=== PATIENT | male | born 1950 | race Caucasian/White ===

== ENCOUNTER → 2016-05-30 | Outpatient (CLI) | payer OTHER ==
[2016-05-30 13:32] LABS: BASO % 0.8 %; BASO ABS # 0.06 K/uL (0-0.2); COMPLETE YES; EOS % 2.4 %; HEMATOCRIT 45.6 % (42-52); IG% 0.1 %; LYMPH % 31.1 %; LYMPH ABS # 2.21 K/uL (1.2-3.4); MEAN CORPUSCULAR HEMOGLOBIN 29.7 pg (25-34); MEAN CORPUSCULAR HGB CONC 32.7 g/dl (32-36); MEAN PLATELET VOLUME 10.8 fL (7.4-10.4); NEUT % 58.6 %; PLATELET COUNT 235 K/uL (130-400); RED BLOOD COUNT 5.01 M/uL (4.7-6.1); WHITE BLOOD COUNT 7.11 K/uL (4.8-10.8)
[2016-05-30 13:35] LABS: ALT/SGPT 13 U/L (12-78); AST/SGOT 8 U/L (15-37); BLOOD UREA NITROGEN 19 mg/dl (7-18); BUN/CREATININE RATIO 14.2 (10-20); CARBON DIOXIDE 31 mmol/L (21-32); CHLORIDE 102 mmol/L (98-107); CHOLESTEROL 108 mg/dl (0-200); GLUCOSE 100 mg/dl (70-99); SODIUM 141 mmol/L (136-145)
[2016-05-30 13:37] LABS: ALKALINE PHOSPHATASE 66 U/L (45-117); CHOLESTEROL/HDL RATIO 2.5; HDL CHOLESTEROL 43 mg/dl; LDL CHOLESTEROL CALCULATED 37 mg/dl; TRIGLYCERIDES 140 mg/dl (0-150); VERY LOW DENSITY LIPOPROT CALC 28 mg/dl
[2016-05-30 13:45] LABS: ESTIMATED AVERAGE GLUCOSE 146 mg/dl; HA1C FLAG Normal (Normal)
== END | disposition home or self-care (01) ==
LOC: C.LABMFLN 07:46
PROVIDERS: ATTEND Family Medicine
DX: E78.5 Hyperlipidemia, unspecified (principal); I10 Essential (primary) hypertension; E11.9 Type 2 diabetes mellitus without complications

== ENCOUNTER → 2016-12-06 | Outpatient (CLI) | payer OTHER | END | disposition home or self-care (01) | LOC: C.LABMFLN 09:44 | PROVIDERS: ATTEND Family Medicine | DX: M10.9 Gout, unspecified (principal); M25.432 Effusion, left wrist ==

== ENCOUNTER → 2017-02-27 | Outpatient (CLI) | payer OTHER ==
[2017-02-27 13:05] LABS: ALT/SGPT 16 U/L (12-78); BLOOD UREA NITROGEN 20 mg/dl (7-18); BUN/CREATININE RATIO 13.8 (10-20); CALCIUM 9.2 mg/dl (8.5-10.1); CARBON DIOXIDE 30 mmol/L (21-32); CHLORIDE 103 mmol/L (98-107); CHOLESTEROL 82 mg/dl (0-200); CREATININE 1.44 mg/dl (0.60-1.40); GLUCOSE 96 mg/dl (70-99); POTASSIUM 4.2 mmol/L (3.5-5.1); SODIUM 141 mmol/L (136-145); TRIGLYCERIDES 143 mg/dl (0-150); URIC ACID 8.6 mg/dl (2.6-7.2); VERY LOW DENSITY LIPOPROT CALC 29 mg/dl
[2017-02-27 13:08] LABS: ALKALINE PHOSPHATASE 87 U/L (45-117); AST/SGOT 11 U/L (15-37); CHOLESTEROL/HDL RATIO 2.1; HDL CHOLESTEROL 40 mg/dl; LDL CHOLESTEROL CALCULATED 13 mg/dl
[2017-02-27 13:19] LABS: ESTIMATED AVERAGE GLUCOSE 160 mg/dl; HA1C FLAG Normal (Normal)
[2017-02-27 13:54] LABS: RATIO 4.2 mcg/mg (0-30.0)
== END | disposition home or self-care (01) ==
LOC: C.LABMFLN 09:19
PROVIDERS: ATTEND Physician Assistant
DX: E78.5 Hyperlipidemia, unspecified (principal); I10 Essential (primary) hypertension; M10.9 Gout, unspecified; E11.9 Type 2 diabetes mellitus without complications

== ENCOUNTER → 2017-08-28 | Outpatient (CLI) | payer OTHER ==
[2017-08-28 13:50] LABS: HEMOGLOBIN A1C 7.4 % (4.5-5.6)
[2017-08-28 14:02] LABS: BASO % 0.6 %; BASO ABS # 0.04 K/uL (0-0.2); EOS % 3.6 %; EOS ABS # 0.23 K/uL (0-0.5); HEMATOCRIT 43.9 % (42-52); HEMOGLOBIN 14.5 g/dL (14.0-18.0); IG# 0.01 K/uL (0.00-0.02); LYMPH % 35.7 %; LYMPH ABS # 2.27 K/uL (1.2-3.4); MEAN CELL VOLUME 88.7 fL (80-100); MEAN CORPUSCULAR HEMOGLOBIN 29.3 pg (25-34); MEAN PLATELET VOLUME 10.6 fL (7.4-10.4); MONO % 6.6 %; MONO ABS # 0.42 K/uL (0.11-0.59); NEUT % 53.3 %; NEUT ABS # 3.38 K/uL (1.4-6.5); PLATELET COUNT 230 K/uL (130-400); RED CELL DISTRIBUTION WIDTH CV 15.6 % (11.5-14.5); RED CELL DISTRIBUTION WIDTH SD 49.7 fL (36.4-46.3); WHITE BLOOD COUNT 6.35 K/uL (4.8-10.8)
[2017-08-28 14:58] LABS: ALBUMIN 3.7 gm/dl (3.4-5.0); ALT/SGPT 21 U/L (12-78); AST/SGOT 16 U/L (15-37); BLOOD UREA NITROGEN 20 mg/dl (7-18); CALCIUM 8.8 mg/dl (8.5-10.1); CARBON DIOXIDE 32 mmol/L (21-32); CHOLESTEROL 108 mg/dl (0-200); CREATININE 1.41 mg/dl (0.60-1.40); GLUCOSE 106 mg/dl (70-99); SODIUM 139 mmol/L (136-145); URIC ACID 8.8 mg/dl (2.6-7.2)
[2017-08-28 15:09] LABS: ALKALINE PHOSPHATASE 79 U/L (45-117); LDL CHOLESTEROL CALCULATED 27 mg/dl; TOTAL PROTEIN 7.5 gm/dl (6.4-8.2)
== END | disposition home or self-care (01) ==
LOC: C.LABMFLN 09:00
PROVIDERS: ATTEND Physician Assistant
DX: E78.5 Hyperlipidemia, unspecified (principal); I10 Essential (primary) hypertension; M10.9 Gout, unspecified; E11.9 Type 2 diabetes mellitus without complications

== ENCOUNTER 2019-02-07 09:42 | Inpatient (IN) ==
--- NOTE | 2019-02-04 10:25 | Anesthesiology Consultation ---
Date of Service February 04, 2019 Assessment & Plan Chart Review Chart Review: Acceptable Risk for Surgery and Patient NOT seen in Pre Admission Testing Consults Requested none ASA ASA4 Proposed Anesthesia Anesthesia Type: General Anesthesia Line Insertion: Arterial line History Surgery Operation Date: 02/07/19 10:40 Proposed Procedures p Left Common Femoral Endarterectomy with Patch, Possible Iliac Stenting - Uriah Barrera MD Allergies Allergy/AdvReac Type Severity Reaction Status Date / Time No Known Drug Allergies Allergy Verified 01/14/19 06:58 Medications Home Medications Medication Instructions Recorded Confirmed Last Taken nitroglycerin 0.4 mg sublingual 0.4 mg SL Q5M #14 tab 09/23/18 01/14/19 Unknown tablet acetaminophen [Tylenol Extra 1,000 mg PO Q6H PRN 01/06/19 01/14/19 Unknown Strength] allopurinol 100 mg PO UD PRN 01/06/19 01/14/19 Unknown amlodipine 5 mg PO QAM 01/06/19 01/14/19 01/13/19 03:00 aspirin [Adult Low Dose Aspirin] 81 mg PO QAM 01/06/19 01/14/19 01/14/19 05:00 atenolol-chlorthalidone 1 tab PO QAM 01/06/19 01/14/19 01/14/19 05:00 atorvastatin 80 mg PO QAM 01/06/19 01/14/19 01/13/19 03:00 colchicine 0.6 mg PO UD PRN 01/06/19 01/14/19 Unknown furosemide 20 mg PO QPM 01/06/19 01/14/19 01/13/19 03:00 lisinopril 40 mg PO QAM 01/06/19 01/14/19 01/13/19 03:00 metformin 500 mg PO BID 01/06/19 01/14/19 01/13/19 03:00 nystatin 1 appln TOP TID #60 gm 01/14/19 Unknown Past Medical History Medical History CAD (coronary artery disease) s/p cardiac stents x 3; RCA/LAD/CX (2001, 2002, 2003) Diabetes mellitus, type 2 NIDDM Dyslipidemia Gout HTN (hypertension) Myocardial Infarction Obesity PAD (peripheral artery disease) S/P LE stents; Following with vascular-- CTA noting occlusion of proximal right SFA with patent profunda and distal runoff to the foot. Mild left common iliac artery with severe stenosis at the origin of the elft internal and moderate external iliac artery stenosis. Left SFA occluded with reconstit ution at the level of the popliteal. Exercise / Class Metabolic Activity III < 4 Walking/Shop/Light housework Past Family History Family History Daughter Family history of diabetes mellitus Past Anesthesia History No Hx of Anesthesia Complications and No Family Hx of Anesthesia Complications History of PONV No Hx of PONV and No Hx of Motion Sickness Social History Smoking Status: Never smoker Hx Alcohol Use: No Hx Substance Use: No Testing Electrocardiogram Date: 12/26/18 Findings: + NSR @ (at 87)
--- NOTE | 2019-02-07 07:20 | History & Physical Report ---
Date of Service February 07, 2019 History of Present Illness Primary Care Provider: Cristiane Duarte PA-C Date of Service January 14, 2019 Assessment & Plan (1) Occlusion of common femoral artery: Patient is admitted for a left common femoral artery endarterectomy with possible iliac stenting. I have discussed the risks options and benefits of the procedure with the patient. The patient understands the risks options and benefits and agrees to the procedure. History of Present Illness Chief Complaint: Severe bilateral claudication Primary Care Provider: Cristiane Duarte PA-C Mr. Anthony Arnold is a very pleasant 68-year-old gentleman with a history of significant peripheral arterial disease who previously underwent what sounds like stenting to the bilateral external iliac arteries in 2002, who now presents with severe, lifestyle limiting, short distance claudication affecting the bilateral lower extremities. He indicates that as far back as he can remember, he has had some pain in his calves, however, for the last several years, it has only been with very long distances, and the pain has not been quite as severe. However, over the last few months, he has noted that he can only walk about 50 yards before he has to stop due to pain experienced in the bilateral calves. The pain is cramping in nature. It is worse in the left than on the right. He also describes pain in the bilateral feet. The pain in the feet is present "all the time." He says that he rarely has pain in his thighs. He denies pain in his hips or buttocks. He indicates that when he lays down at night. He does have some pain in his calves and his feet. This is there "all the time." He does not indicate that it improves with positional changes. He denies any history of wounds to the bilateral lower extremities. He does have some neuropathy which he feels is due to the diabetes in the bilateral lower extremities. He denies any weakness. He did have the prior stents placed, which sounds like in the bilateral external iliac arteries back in 2002. Other than this, he indicates that he has not had any other vascular intervention. Allergies Allergy/AdvReac Type Severity Reaction Status Date / Time No Known Drug Allergies Allergy Verified 01/06/19 15:29 Home Medications Home Medications Medication Instructions Recorded Confirmed Type nitroglycerin 0.4 mg sublingual 0.4 mg SL Q5M #14 tab 09/23/18 01/06/19 Rx tablet acetaminophen [Tylenol Extra 1,000 mg PO Q6H PRN 01/06/19 01/06/19 History Strength] allopurinol 100 mg PO UD PRN 01/06/19 01/06/19 History amlodipine 5 mg PO QAM 01/06/19 01/06/19 History aspirin [Adult Low Dose Aspirin] 81 mg PO QAM 01/06/19 01/06/19 History atenolol-chlorthalidone 1 tab PO QAM 01/06/19 01/06/19 History atorvastatin 80 mg PO QAM 01/06/19 01/06/19 History colchicine 0.6 mg PO UD PRN 01/06/19 01/06/19 History furosemide 20 mg PO QPM 01/06/19 01/06/19 History lisinopril 40 mg PO QAM 01/06/19 01/06/19 History metformin 500 mg PO BID 01/06/19 01/06/19 History Past Med/Surg History Medical History Diabetes mellitus, type 2 NIDDM Gout Myocardial Infarction CAD (coronary artery disease) s/p cardiac stents x 3; RCA/LAD/CX (2001, 2002, 2003) Dyslipidemia HTN (hypertension) Obesity PAD (peripheral artery disease) S/P LE stents; Following with vascular-- CTA noting occlusion of proximal right SFA with patent profunda and distal runoff to the foot. Mild left common iliac artery with severe stenosis at the origin of the elft internal and moderate external iliac artery stenosis. Left SFA occluded with reconstitution at the level of the popliteal. Surgical History History of tooth extraction Hx of vascular surgery B/L LE STENTS H/O cardiac catheterization MANY YEARS AGO; LAST STENTS 2003 Family History Daughter Family history of diabetes mellitus Social History Preferred Language: Emirati Communication Ability: Effective Peoplesoft Programmer Required: No Beliefs That Will Affect Care: None Current Living Situation: Family Other Information That Helps Us Care for You: No Feels Safe at Home: Yes Safety Concerns: Feels Safe At This Time Smoking Status: Never smoker Do You Dip or Chew Tobacco: No ; Smoking End Date: QUIT EARLY ; Second Hand Exposure: No ; Hx Alcohol Use: No Hx Substance Use: No Review of Systems All systems reviewed & are unremarkable except as noted in HPI & below Physical Exam Physical Exam: He is a well-appearing, well-nourished, elderly male who is in no acute distress. He is accompanied by his daughter to today's visit. He is breathing comfortably on room air. Lungs are clear His heart has a regular rate and rythm. His abdomen is obese, however, soft, nontender, nondistended. There are no palpable pulsatile abdominal masses. I am able to weakly palpate a femoral pulse on the right. I am unable to palpate a femoral pulse on the left. His bilateral feet are slightly cool to the touch. I am not able to palpate any pedal pulses bilaterally. There are no wounds to the bilateral lower extremities. He does have the aforementioned neuropathy, which affects his bilateral feet and he indicates that this is at baseline. He is able to sense light touch to the bilateral feet. His motor is intact to the bilateral lower extremities Signed By:<Electronically signed by Uriah Barrera MD>01/14/19 0652 Created: 01/14/19 0646 The status of this report is Signed. Draft = Not yet reviewed or approved by Medical Physician. Signed = Reviewed and approved by Medical Physician. Allergies Allergy/AdvReac Type Severity Reaction Status Date / Time No Known Drug Allergies Allergy Verified 02/05/19 16:04 Home Medications Home Medications Medication Instructions Recorded Confirmed Type nitroglycerin 0.4 mg sublingual 0.4 mg SL Q5M #14 tab 09/23/18 02/05/19 Rx tablet acetaminophen [Tylenol Extra 1,000 mg PO Q6H PRN 01/06/19 02/05/19 History Strength] allopurinol 100 mg PO UD PRN 01/06/19 02/05/19 History amlodipine 5 mg PO QAM 01/06/19 02/05/19 History aspirin [Adult Low Dose Aspirin] 81 mg PO QAM 01/06/19 02/05/19 History atenolol-chlorthalidone 1 tab PO QAM 01/06/19 02/05/19 History atorvastatin 80 mg PO QAM 01/06/19 02/05/19 History colchicine 0.6 mg PO UD PRN 01/06/19 02/05/19 History furosemide 20 mg PO QPM 01/06/19 02/05/19 History lisinopril 40 mg PO QAM 01/06/19 02/05/19 History metformin 500 mg PO BID 01/06/19 02/05/19 History nystatin 1 appln TOP TID #60 gm 01/14/19 02/05/19 Rx Past Med/Surg History Medical History CAD (coronary artery disease) s/p cardiac stents x 3; RCA/LAD/CX (2001, 2002, 2003) Diabetes mellitus, type 2 NIDDM Dyslipidemia Gout HTN (hypertension) Myocardial Infarction Obesity PAD (peripheral artery disease) S/P LE stents; Following with vascular-- CTA noting occlusion of proximal right SFA with patent profunda and distal runoff to the foot. Mild left common iliac artery with severe stenosis at the origin of the elft internal and moderate external iliac artery stenosis. Left SFA occluded with reconstitution at the level of the popliteal. Family History Daughter Family history of diabetes mellitus Social History Preferred Language: Emirati Communication Ability: Effective Peoplesoft Programmer Required: No Beliefs That Will Affect Care: None Current Living Situation: Family Other Information That Helps Us Care for You: No Feels Safe at Home: Yes Safety Concerns: Feels Safe At This Time Smoking Status: Former smoker Tobacco Type: cigarettes ; Do You Dip or Chew Tobacco: No ; Smoking End Date: 1999 ; Second Hand Exposure: No ; Tobacco Cessation Education Requested by Patient: No Hx Alcohol Use: No Hx Substance Use: No
[~2019-02-07 09:42] MED LIST: CEFAZOLIN 2000MG 2,000 MG/15 ML SYR IV SCH; SODIUM CHLORIDE 0.9% 1000ML IV SCH
[2019-02-07 10:29] LABS: BUN Creatinine Ratio 10.5 (10-20); Calcium 8.9 mg/dl (8.5-10.1); Creatinine Clr Calc Pharmacy 57.9 ml/min; Est GFR (African American) 57.8; Est GFR (Non-African American) 49.9
--- NOTE | 2019-02-07 10:42 | History & Physical Bridge Note ---
Date of Service February 07, 2019 History & Physical Bridge Note I have examined the patient, reviewed the History & Physical and in the interval since the performance of the History & Physical I have noted the following changes of clinical significance: no changes noted
[2019-02-07] MEDS ORDERED: ONDANSETRON INJ 2 MG/ML 2 ML VIAL ONE ×2 (11:12→16:13)
[2019-02-07] MEDS ORDERED: MIDAZOLAM HCL 1 MG/ML 2ML VIAL ONE (11:12)
[2019-02-07] MEDS ORDERED: LIDOCAINE HCL 2% 2 ML VIAL/AMP(20MG/ML) INFIL ONE (11:12)
[2019-02-07] MEDS ORDERED: NEOSTIGMINE METHYLSULFATE 5 MG/5 ML SYR ONE (11:12)
[2019-02-07] MEDS ORDERED: fentaNYL citrate 100 MCG/2 ML VIAL ONE ×2 (11:12→16:09)
[2019-02-07] MEDS ORDERED: PROPOFOL IV EMULSION 10 MG/ML 20 ML VIAL IV ONE (11:12)
[2019-02-07] MEDS ORDERED: DEXAMETHASONE SOD INJ 4 MG/ML VIAL ONE (11:12)
[2019-02-07] MEDS ORDERED: ROCURONIUM BROMIDE 10 MG/ML 5 ML VIAL ONE (11:12)
[2019-02-07] MEDS ORDERED: GLYCOPYRROLATE 0.2 MG/ML VIAL ONE (11:12)
[2019-02-07] MEDS ORDERED: LIDOCAINE HCL 1% 20 ML VIAL ONE (11:37)
[2019-02-07] MEDS ORDERED: PAPAVERINE HCL INJ 30 MG/ML 2 ML VIAL ONE (11:37)
[2019-02-07] MEDS ORDERED: HEPARIN (PORCINE) 1000 UNIT/ML 10 ML (CATH LAB USE ONLY) ONE ×2 (11:37→13:56)
[2019-02-07] MEDS ORDERED: GELATIN SPONGE SZ 100 ONE (11:38)
[2019-02-07] MEDS ORDERED: IODIXANOL (VISIPAQUE) 270 MG/ML 50ML ONE (11:38)
[2019-02-07] MEDS ORDERED: IODIXANOL (VISIPAQUE) 270 MG/ML 150ML ONE (11:38)
[2019-02-07] MEDS ORDERED: THROMBIN 5000 UNITS KIT ONE (11:38)
[2019-02-07] MEDS ORDERED: BUPIVACAINE/EPINEPHRINE 0.5% MPF 1:200,000 30 ML VIAL ONE (11:38)
--- NOTE | 2019-02-07 11:51 | Procedure Note ---
Procedure Note Date of Service February 07, 2019 Radial arterial line placed in ASU 2 at 1130 by Koby Arellano CRNA in preparation for left femoral endarterectomy with Dr. Barrera. Left wrist prepped with chlorhexidine and draped with sterile towels. Site infiltrated with 1 cc of 1% lidocaine. 20 G angiocath placed under sterile technique utilizing sterile gloves, surgical hats and masks. Catheter threaded using seldinger technique with return of pulsatile, bright red blood. Site covered with occlusive dressing and taped in place. Waveform consistent with correct arterial placement. After placement, fingers of procedural hand had normal perfusion. Patient tolerated procedure well without complications. I was present throughout arterial line placement. Gale Calix MD, PhD Coding
[2019-02-07] MEDS ORDERED: ATROPINE SULFATE 0.1 MG/ML 10ML SYR IV PRN (12:42)
[2019-02-07] MEDS ORDERED: ePHEDrine sulfate 50 MG/ML AMP IV PRN (12:42)
[2019-02-07] MEDS ORDERED: fentaNYL citrate 100 MCG/2 ML VIAL IV PRN (12:42)
[2019-02-07] MEDS ORDERED: HYDROmorphone INJ 1 MG/ML SYRINGE IV PRN (12:42)
[2019-02-07] MEDS ORDERED: ONDANSETRON INJ 2 MG/ML 2 ML VIAL IV PRN ×2 (12:42→17:56)
[2019-02-07] MEDS ORDERED: SODIUM CHLORIDE 0.9% 250 ML IV PRN (13:54)
[2019-02-07] MEDS ORDERED: ALBUMIN HUMAN 5% 12.5 GM/250 ML VIAL IV ONE (13:59)
[2019-02-07] MEDS ORDERED: PHENYLEPHRINE HCL 10 MG/ML VIAL ONE (14:24)
[2019-02-07] MEDS: CEFAZOLIN 250 MG/ML 1 GM VIAL ONE ×2 (15:25→15:43)
--- NOTE | 2019-02-07 16:06 | Fluoroscopy Report ---
FL hip LT 1V CLINICAL HISTORY: LOST SUTURE COMPARISON STUDY: CTA of the abdomen and pelvis December 10, 2018. FLUOROSCOPY TIME: 0 minutes. FLUOROSCOPIC IMAGES: 2 FINDINGS: No unexpected radiopaque foreign bodies are identified. There are multiple surgical clips. A catheter within the right femoral artery is noted. IMPRESSION: No unexpected radiopaque foreign bodies. Electronically signed by: Moisés Willis M.D. 02/07/2019 4:05 PM
--- NOTE | 2019-02-07 16:07 | Post Operative Brief Note ---
Immediate Post Op Note v1 Date of Surgery February 07, 2019 Pre & Post Diagnosis Operation Date: 02/07/19 11:35 Pre-Op Diagnosis: Left Common Femoral Artery Occlusion Post-Op Diagnosis: Left Common Femoral Artery Occlusion I identified the patient and participated in the time-out.: Yes Procedure Operation Date: 02/07/19 11:35 Actual Procedures p Left common iliac artery stent placement, left external iliac stent placement, left external iliac to left profunda femoral artery bovine bypass,(Left) - Uriah Barrera MD Surgeon Uirah Barrera MD Supervisor Edging MD Andrae L.Minarchick,PAC Estimated Blood Loss 2,200 Findings Consistent with Post-Op Diagnosis Drains Solis Catheter (16 hebrew 10 ml balloon; inserted without difficulty; patent, clear urine; clean dry intact) Anesthesia Type General Complications none Disposition Accompanied Patient To Recovery: No Disposition: Recovery Room
[2019-02-07] MEDS ORDERED: KETAMINE HCL INJ 50 MG/ML 10 ML VIAL ONE (16:11)
[2019-02-07 16:55] LABS: iSTAT Creatinine 1.2 mg/dl (0.6-1.3); iSTAT Hemoglobin 12.2 g/dl (14.0-18.0); iSTAT Ionized Calcium 1.15 mmol/l (1.12-1.32); iSTAT Potassium 4.3 mEq/L (3.3-5.0)
--- NOTE | 2019-02-07 17:06 | Anesthesiology Progress Note ---
Date of Service February 07, 2019 Anesthesia Post Procedure Vital Signs Vital Signs: Temp Pulse Pulse Resp BP Pulse Ox 02/07/19 16:55 80 18 111/70 95 02/07/19 16:45 80 25 H 111/78 98 02/07/19 16:36 36 C L 87 18 111/86 98 02/07/19 10:16 36.9 C 88 18 131/91 93 Pain Intensity Left Leg: Pain Intensity: 10 Transfer of Care Handoff Completed per policy Notes Mental Status: alert / awake / arousable Patient Amnestic to Procedure: Yes Nausea / Vomiting: adequately controlled Pain: adequately controlled Airway Patency, RR, SpO2: stable & adequate BP & HR: stable & adequate Hydration State: stable & adequate Anesthetic Complications: no major complications apparent
--- NOTE | 2019-02-07 17:12 | Critical Care Consultation ---
Date of Consultation February 07, 2019 Assessment & Plan (1) Admitted to intensive care unit: Reason critically ill: 68yo male with PMhx significant for peripheral vascular disease with symptomatic worsening claudication, HTN, HLD, MN, CAD s/p 3 stent placements , DMII, gout and obesity who is s/p left iliac artery stent placement. Was transfused 2 bags of pRBCs after losing ~2L of blood during surgery. Neuro -Pt AAOx3. Unsure of President. -continue to monitor and re-orient as necessary -Pain meds per primary team CV -Currently on hypotensive side due to acute blood loss -s/p 2U of transfused pRBCS in surgery -H &H checks per primary team -Transfuse as necessary per instructions by primary team -continue home med administration per primary team for Hx of HTN, HLD, MN, CAD, PVD Resp -currently on 2L of NC; continue to wean as tolerated. -continue to monitor GI -diet per primary team Renal/ -Baseline Cr of 1.4 -will continue to monitor for any acute changes. Endocrine -Pt with DMII -ICU protocol for hyperglycemia HEME -Acute blood loss anemia-currently HgB at 12 -will continue to monitor ID postop abx per primary team PIVs DVT proph: SCDs Dispo: ICU for monitoring (2) Occlusion of common femoral artery: (3) Acute blood loss as cause of postoperative anemia: Supervising Physician Co-Signing Physician Notes Patient seen and examined with resident-physician Dr. Haile and I agree with h er assessment/plan aside for any exceptions/adiditions noted: Patient had 2.2 L of blood loss in OR. Received 2 units intraprocedurally. Doing ok now. BP maintaining. 18 g and [address] Ideally would want another 18 g or 16 g. Check hgb now. Transfuse as needed. Left posterior tibial pulse present faintly with doppler. Pedal pulse extremely faint with doppler. Rest of plan per Dr. Barrera. History of Present Illness Attending Physician: Uriah Barrera MD History of Present Illness Pt is a 68yo male with PMhx significant for peripheral vascular disease with symptomatic worsening claudication, HTN, HLD, MN, CAD s/p 3 stent placements , DMII, gout and obesity who is s/p left iliac artery stent placement. Was transfused 2 bags of pRBCs after losing ~2L of blood during surgery. Is currently in the ICU for monitoring. Pt states he is thirsty but otherwise denies dizziness, DIEGO, blurry vision, runny nose, cough, sore throat, chest pain, palps, SOB, upper abd pain, diarrhea or constipation, numbness or tingling in hands bilaterally. States he has lower abd and left groin pain. Daughter is family present postop. Allergies Allergy/AdvReac Type Severity Reaction Status Date / Time No Known Drug Allergies Allergy Verified 02/07/19 10:00 Home Medications Home Medications Medication Instructions Recorded Confirmed Type nitroglycerin 0.4 mg sublingual 0.4 mg SL Q5M #14 tab 09/23/18 02/07/19 Rx tablet acetaminophen [Tylenol Extra 1,000 mg PO Q6H PRN 01/06/19 02/07/19 History Strength] allopurinol 100 mg PO UD PRN 01/06/19 02/07/19 History amlodipine 5 mg PO QAM 01/06/19 02/07/19 History aspirin [Adult Low Dose Aspirin] 81 mg PO QAM 01/06/19 02/07/19 History atenolol-chlorthalidone 1 tab PO QAM 01/06/19 02/07/19 History atorvastatin 80 mg PO QAM 01/06/19 02/07/19 History colchicine 0.6 mg PO UD PRN 01/06/19 02/07/19 History furosemide 20 mg PO QPM 01/06/19 02/07/19 History lisinopril 40 mg PO QAM 01/06/19 02/07/19 History metformin 500 mg PO BID 01/06/19 02/07/19 History nystatin 1 appln TOP TID #60 gm 01/14/19 02/07/19 Rx Patient History Medical History CAD (coronary artery disease) s/p cardiac stents x 3; RCA/LAD/CX (2001, 2002, 2003) Diabetes mellitus, type 2 NIDDM Dyslipidemia Gout HTN (hypertension) Myocardial Infarction Obesity PAD (peripheral artery disease) S/P LE stents; Following with vascular-- CTA noting occlusion of proximal right SFA with patent profunda and distal runoff to the foot. Mild left common iliac artery with severe stenosis at the origin of the elft internal and moderate external iliac artery stenosis. Left SFA occluded with reconstitution at the level of the popliteal. Family History Daughter Family history of diabetes mellitus Social History Preferred Language: Yoruba Communication Ability: Effective Capsule Machine Operator Required: No Beliefs That Will Affect Care: None Current Living Situation: Family Other Information That Helps Us Care for You: No Feels Safe at Home: Yes Safety Concerns: Feels Safe At This Time Smoking Status: Former smoker Tobacco Type: cigarettes ; Do You Dip or Chew Tobacco: No ; Smoking End Date: 1999 ; Second Hand Exposure: No ; Tobacco Cessation Education Requested by Patient: No Hx Alcohol Use: No Hx Substance Use: No Review of Systems Review of Systems: All systems reviewed & are unremarkable except as noted in HPI & below Physical Exam Physical Exam: General: Alert, orientedx 3. Not oriented to President. No acute distress Skin: No noted rashes or bruises. Left inguinal surgical incision bandaged with no visible bleeding. Psych: Appropriate mood and affect Neuro: No gross deficits. Moves extremities. HEENT: NC/AT, nasal cannula in nares. Chest: Nontender to palpation. CV: RRR, Normal s1, s2. DP pulse not heard on left with doppler. Resp: Breath sounds clear bilaterally on front, no increased effort of breat wily. Abdomen: Soft, mildly tender in upper and lower quadrants, nondistended. No guarding. Extremities: No edema in lower extremities bilaterally. Results & Data Vital Signs (Past 12 Hours) Vital Signs Temp Pulse Pulse Resp BP Pulse Ox 02/07/19 17:05 81 21 109/73 95 02/07/19 16:55 80 18 111/70 95 02/07/19 16:45 80 25 H 111/78 98 02/07/19 16:36 36 C L 87 18 111/86 98 02/07/19 10:16 36.9 C 88 18 131/91 93 Laboratory Results Laboratory Results - last 24 hr 02/07/19 02/07/19 02/07/19 09:56 09:56 10:07 POC Hgb POC Hct POC Sodium Sodium 138 POC Potassium Potassium 4.0 POC Chloride Chloride 103 Carbon Dioxide 28 POC Total CO2 Anion Gap 7.0 POC Anion Gap POC BUN BUN 15 Creatinine 1.44 H POC Creatinine Est Cr Clr Drug Dosing 57.9 Est GFR ( Amer) 57.8 Est GFR (Non-Af Amer) 49.9 BUN/Creatinine Ratio 10.5 Glucose 109 H POC Glucose 96 POC Glucose (other) Calcium 8.9 POC Ioniz Calcium Eri Blood Type O Positive Antibody Screen NEGATIVE Crossmatch See Detail 02/07/19 02/07/19 14:10 16:35 POC Hgb 12.2 L POC Hct 36 L POC Sodium 138 Sodium POC Potassium 4.3 Potassium POC Chloride 104 Chloride Carbon Dioxide POC Total CO2 25 Anion Gap POC Anion Gap 14.0 L POC BUN 13 BUN Creatinine POC Creatinine 1.2 Est Cr Clr Drug Dosing Est GFR ( Amer) Est GFR (Non-Af Amer) BUN/Creatinine Ratio Glucose POC Glucose 145 H POC Glucose (other) 132 H Calcium POC Ioniz Calcium Eri 1.15 Blood Type Antibody Screen Crossmatch Medications Administered Home Medications nitroglycerin 0.4 mg sublingual tablet 0.4 mg SL Q5M #14 tab 09/23/18 [Rx Confirmed 02/07/19] acetaminophen [Tylenol Extra Strength] 1,000 mg PO Q6H PRN 01/06/19 [History Confirmed 02/07/19] allopurinol 100 mg PO UD PRN 01/06/19 [History Confirmed 02/07/19] amlodipine 5 mg PO QAM 01/06/19 [History Confirmed 02/07/19] aspirin [Adult Low Dose Aspirin] 81 mg PO QAM 01/06/19 [History Confirmed 02/07/19] atenolol-chlorthalidone 1 tab PO QAM 01/06/19 [History Confirmed 02/07/19] atorvastatin 80 mg PO QAM 01/06/19 [History Confirmed 02/07/19] colchicine 0.6 mg PO UD PRN 01/06/19 [History Confirmed 02/07/19] furosemide 20 mg PO QPM 01/06/19 [History Confirmed 02/07/19] lisinopril 40 mg PO QAM 01/06/19 [History Confirmed 02/07/19] metformin 500 mg PO BID 01/06/19 [History Confirmed 02/07/19] nystatin 1 appln TOP TID #60 gm 01/14/19 [Rx Confirmed 02/07/19] Active Medications Acetaminophen (Tylenol) 1,000 mg PO Q6H PRN PRN Reason: Pain Stop: 03/09/19 17:55 Allopurinol (Zyloprim) 100 mg PO UD PRN PRN Reason: Pain Stop: 03/09/19 17:55 Amlodipine Besylate (Norvasc) 5 mg PO QAM ZOEY Stop: 03/10/19 08:59 Aspirin (Ecotrin Ectab) 81 mg PO QAM ZOEY Stop: 03/10/19 08:59 Atorvastatin Calcium (Lipitor) 80 mg PO QAM ZOEY Stop: 03/10/19 08:59 Colchicine (Colcrys) 0.6 mg PO UD PRN PRN Reason: Pain Stop: 03/09/19 17:55 Enoxaparin Sodium (Lovenox) 40 mg SQ Q12H ZOEY Stop: 03/10/19 07:59 Furosemide (Lasix) 20 mg PO QPM ZOEY Stop: 03/09/19 20:59 Sodium Chloride (Nss 1000ml) 1,000 mls @ 15 mls/hr IV .Q24H ZOEY Stop: 02/08/19 05:59 Cefazolin Sodium (Ancef 2000mg) 2,000 mg in 15 mls @ 3.75 mls/min IV PREOP ZOEY; Protocol Stop: 02/08/19 05:59 Last Admin: 02/07/19 11:57 Dose: 3.75 mls/min Documented by: Sodium Chloride (Nss 1000ml) 1,000 mls @ 80 mls/hr IV .[id number] ZOEY Stop: 02/07/19 18:29 Last Infusion: 02/07/19 12:00 Dose: Infused Documented by: Sodium Chloride (Nss) 250 mls @ 15 mls/hr IV .[id number] PRN PRN Reason: For Transfusion Stop: 03/09/19 13:53 Sodium Chloride (Nss) 500 mls @ 125 mls/hr IV .Q4H ZOEY Stop: 03/09/19 17:55 Cefazolin Sodium (Ancef 2000mg) 2,000 mg in 15 mls @ 3.75 mls/min IV Q8H ZOEY; Protocol Stop: 02/08/19 01:59 Lisinopril (Zestril) 40 mg PO QAM ZOEY Stop: 03/10/19 08:59 Miscellaneous Information (Consult Glycemic Management Pharmacy) 1 ea N/A NOW STA Stop: 02/07/19 17:57 Morphine Sulfate (Morphine Sulfate) 1 - 4 mg IV Q2H PRN PRN Reason: Severe Pain Stop: 02/21/19 17:55 Nitroglycerin (Nitrostat) 0.4 mg SL Q5M ZOEY Stop: 03/09/19 17:55 Non-Formulary Medication (Atenolol-Chlorthalidone) 1 tab PO QAM ZOEY Stop: 03/10/19 08:59 Ondansetron HCl (Zofran) 4 mg IV Q6H PRN PRN Reason: Nausea And Vomiting Stop: 03/09/19 17:55 Oxycodone/Acetaminophen (Percocet 5mg/325mg) 1 - 2 tab PO Q4H PRN PRN Reason: Moderate Pain Stop: 02/21/19 17:55 PG Care Time/CCT Total # of Minutes Spent Total Time Spent with Patient: Total time spent is greater than 50% in coordination of care (as documented) at patient's floor/unit and/or counseling patient: Resident Activity Tracking Resident Involvement: Resident Care Provided Care Provided: Adult Hospital Medicine
--- NOTE | 2019-02-07 17:21 | Procedure Note ---
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 Holly Burnham MD Small Machine Bindery Operator MD Andrae L.Minarchick,PAC Estimated Blood Loss 2,200 Findings See Below Patient was found to have a severe stenosis in the left external iliac artery as well as a severe stenosis in the left common iliac artery. Patient had a patent distal aorta. Patient had a patent right common iliac and right external iliac arteries as well as a patent right hypogastric. Upon dissection of the left groin the patient was found to have a bifurcated Dacron graft from the distal external iliac artery to the superficial femoral artery and the deep femoral artery. The end of the case the patient had bilateral AT and PT signals. Specimens None Drains None Anesthesia Type General Complications none Disposition Accompanied Patient To Recovery: No Disposition: Recovery Room Indications 68-year-old male with severe lifestyle limiting claudication. Description of Procedure The patient was taken to the angio suite correctly identified and placed supine on the angiography table. Patient underwent a general anesthetic. Patient had a Solis catheter inserted. Distal signals were marked on bilateral lower extremities. Both groins were prepped and draped in this sterile standard fashion. Attention was then turned to the left groin where using a 10 blade a vertical incision was made two thirds of the distance between the ASIS and the pubic symphysis. Using combination of electrocautery and sharp dissection the incision was carried down to the level of the pre-existing bifurcated graft. Of note this was a severely scarred surgical field. Dissection of the left external iliac artery was completed and carried down to the proximal anastomosis of the bifurcated graft. Attention was then turned to the bifurcated graft and dissection of both limbs of the bifurcated graft was carried down to the distal anastomosis. During the dissection the common femoral vein had an area of injury that was repaired using a 4-0 Prolene suture. Attention was then turned to the right groin and using ultrasound guidance the right common femoral artery was localized. The right common femoral artery was accessed using a 18 gauge needle ultrasound guidance. A J wire was threaded and the 11 blade was used to make an ache in the skin. Following that a 5 Kittitian sheath was advanced over the J-wire after the axis needle was removed. 035 angled glide wire was then advanced into the abdominal aorta and pigtail catheter advanced into the distal aorta. Limited aortogram was obtained. The angiogram revealed a severely stenotic left common iliac artery as well as a severely stenotic left external iliac and left internal iliac artery. The patient had patent right iliac system. Attention was then turned to the left groin where a 18-gauge needle was used to access the bifurcated graft at the anterior surface. A wire was then advanced and the access needle was then exchanged with an 8 Kittitian sheath. Angled Glidewire was then advanced into the distal aorta. An 11 x 39 mm VBX stent was then advanced into the left common iliac artery and deployed. A follow-up angiogram revealed a patent stent with resolution of the stenosis. Attention was then turned to the left groin bifurcated graft. Using the same access point a #5 Christian balloon was inserted into the external iliac artery and inflated to be the proximal control. The profunda was then dissected free and a profunda clamp was applied around it after a vessel loop encircled it. Using an 11 blade the anterior surface of the bifurcated graft was accessed and a Cunha scissors was used to extend the graftotomy created by the 11 blade. The Dacron graft was then dissected free and excised and explanted. At that point the SFA was examined and had no backbleeding so it was ligated using a 2-0 silk tie. The profunda had great backbleeding and the edges were dissected free and both lumens of the profunda were examined and dissected free of any plaque. An 8 mm bovine carotid artery artery graft was then used to create a bypass from the left external iliac artery to the deep femoral artery. Following the proximal anastomosis creation the inflow was examined and a #4 and #5 Christian balloons were advanced into the external iliac and a thrombectomy was completed. At that time an angiogram of the left external iliac artery was completed and revealed a stenotic left external iliac artery at its proximal end so a 10 x 10 mm Viabohn stent was advanced and deployed just distal to the iliac bifurcation. A completion angiogram revealed a patent left common iliac artery stent as well as a patent left external iliac artery stent and a patent though stenotic left hypogastric. The distal end of the bovine carotid artery graft was then anastomosed to the deep femoral artery. Doppler was then employed to evaluate flow as revealed excellent triphasic flow through the profunda branches just distal to the bypass. The foot was then evaluated and it appeared to be pink in color and warm and had a AT and a PT signal present. The wound was then irrigated with antibiotic irrigation and meticulous hemostasis was achieved using electrocautery and clips. At that time 1 of the needles was misplaced and an x- ray of the surgical field was obtained and did not show any sign of the needle. Attention was then turned to the right groin. The 5 Kittitian sheath was then flushed and a wire was introduced into the 5 Kittitian sheath the 5 Kittitian sheath was then exchanged over the wire with the 6 Kittitian Star closure device dilator and sheath. The Star close device was then deployed. Unfortunately, the device closure deployment failed to seal the artery and the device was removed and pressure was held for 15min. She was then turned back to the left groin where the wound was examined once m ore and meticulous hemostasis was achieved at that point the groin wound was closed in a multilayered closure fashion using 2-0 Vicryl sutures to approximate the deep tissues followed by 3-0 Vicryl suture to approximate the wound and dave were used to approximate the skin edges. Sterile dressings were applied to both groins. Patient tolerated the procedure well and at end of the case had no sign of any hematoma in both groins. The patient was taken back to the recovery area in a flat position. At the end of the case after further research the missing needle was located and the case count was completed and accurate. Dr. Barrera was present for the entirety of the procedure. I attest to the content of the Intraoperative Record and any orders documented therein. Any exceptions are noted below.
[2019-02-07] MEDS ORDERED: ALLOPURINOL 100 MG TAB PO PRN (17:56)
[2019-02-07] MEDS ORDERED: ACETAMINOPHEN 500 MG TAB PO PRN (17:56)
[2019-02-07] MEDS ORDERED: COLCHICINE 0.6 MG TAB PO PRN (17:56)
[2019-02-07] MEDS ORDERED: MoRPHine SULFATE 4 MG/ML 1 ML CARP\\VIAL IV PRN (17:56)
[2019-02-07] MEDS ORDERED: PHARMACY GLYCEMIC MGMT CONSULT PRN (18:25)
[2019-02-07] MEDS ORDERED: GLUCOSE 10 TABS/TUBE PO PRN (18:30)
[2019-02-07] MEDS ORDERED: GLUCAGON FOR INJ 1 MG VIAL IM PRN (18:30)
[2019-02-07] MEDS ORDERED: GLUCOSE 40% GEL 15 GM TUBE PO PRN (18:30)
[2019-02-07] MEDS ORDERED: CARBOHYDRATES FOR HYPOGLYCEMIA PO PRN (18:30)
[2019-02-07] MEDS ORDERED: DEXTROSE 50% 50 ML SYRINGE IV PRN (18:30)
[2019-02-07] MEDS: SODIUM CHLORIDE 0.9% 1000ML 1,000 ML IV SCH (18:31)
[2019-02-07 18:39] LABS: Basophils # (auto) 0.03 K/uL (0-0.2); Basophils % (auto) 0.3 %; Eosinophils # (auto) 0.01 K/uL (0-0.5); Eosinophils % (auto) 0.1 %; Hematocrit (blood only) 32.4 % (42-52); Hemoglobin 10.6 g/dL (14.0-18.0); Immature Granulocytes # (auto) 0.02 K/uL (0.00-0.02); Immature Granulocytes % (auto) 0.2 %; Lymphocytes # (auto) 0.94 K/uL (1.2-3.4); Lymphocytes % (auto) 9.7 %; Mean Corpuscular Hemoglobin 29.4 pg (25-34); Mean Corpuscular Volume 89.8 fL (80-100); Mean Platelet Volume 10.3 fL (7.4-10.4); Monocytes # (auto) 0.43 K/uL (0.11-0.59); Monocytes % (auto) 4.5 %; Neutrophils # (auto) 8.22 K/uL (1.4-6.5); Neutrophils % (auto) 85.2 %; Platelet Count 201 K/uL (130-400); RDW Coefficient of Variation 14.7 % (11.5-14.5); RDW Standard Deviation 48.7 fL (36.4-46.3); Red Blood Count 3.61 M/uL (4.7-6.1); White Blood Count 9.65 K/uL (4.8-10.8)
[2019-02-07 18:43] LABS: Mean Corpuscular Hgb Conc 32.7 g/dL (32-36)
[2019-02-07] MEDS ORDERED: NovoLIN-N (NPH) PER UNIT CHARGE SQ ONE (18:45)
[2019-02-07] MEDS ORDERED: NITROGLYCERIN SL 0.4 MG/TAB TAB SL PRN (19:05)
[2019-02-07] MEDS: NITROGLYCERIN SL 0.4 MG/TAB TAB SL SCH ×6 (19:07→19:58)
[2019-02-07 19:39] LABS: BUN Creatinine Ratio 11.8 (10-20); Calcium 7.4 mg/dl (8.5-10.1); Est GFR (African American) 76.7; Est GFR (Non-African American) 66.2; Potassium 4.9 mmol/L (3.5-5.1)
[2019-02-07] MEDS: INSULIN ASPART 100 UNITS/ML 3 ML PEN SC SCH ×2 (19:39→21:18)
[2019-02-07] MEDS: FUROSEMIDE 20 MG TAB PO SCH (21:17)
[2019-02-07] MEDS: CEFAZOLIN 2000MG 2,000 MG/15 ML SYR IV SCH (21:55)
[2019-02-07] MEDS ORDERED: INFLUENZA VACCINE HIGH DOSE 65+ 0.5 ML SYR IM ONE (22:15)
[2019-02-07] MEDS ORDERED: PNEUMOCOCCAL POLYSACCHARIDES 25 MCG/0.5 ML VIAL/SYR IM ONE (22:15)
[2019-02-07] MEDS ORDERED: INFLUENZA ADMINISTRATION CHARGE ONE (22:15)
[2019-02-07] MEDS ORDERED: PNEUMOCOCCAL ADMINISTRATION CHARGE ONE (22:15)
[2019-02-07 23:24] LABS: Hematocrit (blood only) 30.6 % (42-52); Hemoglobin 10.3 g/dL (14.0-18.0)
[2019-02-08] MEDS: SODIUM CHLORIDE 0.9% 1000ML 1,000 ML IV SCH ×2 (02:35→10:10)
[2019-02-08 04:41] LABS: Basophils # (auto) 0.02 K/uL (0-0.2); Basophils % (auto) 0.2 %; Eosinophils # (auto) 0.01 K/uL (0-0.5); Eosinophils % (auto) 0.1 %; Hematocrit (blood only) 29.7 % (42-52); Hemoglobin 9.9 g/dL (14.0-18.0); Immature Granulocytes # (auto) 0.02 K/uL (0.00-0.02); Immature Granulocytes % (auto) 0.2 %; Lymphocytes # (auto) 1.17 K/uL (1.2-3.4); Lymphocytes % (auto) 14.2 %; Mean Corpuscular Hemoglobin 29.8 pg (25-34); Mean Corpuscular Hgb Conc 33.3 g/dL (32-36); Mean Corpuscular Volume 89.5 fL (80-100); Mean Platelet Volume 9.8 fL (7.4-10.4); Monocytes # (auto) 0.63 K/uL (0.11-0.59); Monocytes % (auto) 7.7 %; Neutrophils # (auto) 6.38 K/uL (1.4-6.5); Neutrophils % (auto) 77.6 %; Platelet Count 210 K/uL (130-400); RDW Standard Deviation 49.2 fL (36.4-46.3); Red Blood Count 3.32 M/uL (4.7-6.1); White Blood Count 8.23 K/uL (4.8-10.8)
[2019-02-08 05:00] LABS: BUN Creatinine Ratio 10.7 (10-20); Calcium 7.1 mg/dl (8.5-10.1); Creatinine Clr Calc Pharmacy 72.7 ml/min; Est GFR (African American) 77.5; Est GFR (Non-African American) 66.9; Potassium 4.3 mmol/L (3.5-5.1)
[2019-02-08] MEDS: CEFAZOLIN 2000MG 2,000 MG/15 ML SYR IV SCH (06:37)
--- NOTE | 2019-02-08 08:24 | Critical Care Progress Note ---
Date of Service February 08, 2019 Assessment & Plan (1) Admitted to intensive care unit: Reason critically ill: 68yo male with PMhx significant for peripheral vascular disease with symptomatic worsening claudication, HTN, HLD, GA, CAD s/p 3 stent placements , DMII, gout and obesity who is s/p left iliac artery stent placement. Was transfused 2 bags of pRBCs after losing ~2L of blood during surgery. Stable for downgrade. Neuro -Pt AAOx3. -continue to monitor and re-orient as necessary -Pain meds per primary team CV -Currently on hypotensive side due to acute blood loss -s/p 2U of transfused pRBCS in surgery 02/07 -H &H checks per primary team -Transfuse as necessary per instructions by primary team -continue home med administration per primary team for Hx of HTN, HLD, GA, CAD, PVD Resp -No oxygen requirement today. -continue to monitor GI -diet per primary team Renal/ -Baseline Cr of 1.4 -However, Cr is much improved today. -Continue to monitor for any acute changes. Endocrine -Pt with DMII -ICU protocol for hyperglycemia HEME -Acute blood loss anemia-currently HgB at 9.9 -continue to monitor ID postop abx per primary team PIVs- 18 and 20 gauge DVT proph: SCDs Dispo: Stable for downgrade (2) Occlusion of common femoral artery: (3) Acute blood loss as cause of postoperative anemia: Supervising Physician Co-Signing Physician Notes Dr. Haile was the resident-physician during care of patient. I separately evaluated patient for song portions of the history and the exam. I was present during the critical portion of medical decision making, and I discussed the case with the resident. I generally agree with the findings and plan except for any additions/exceptions noted. Patient is sitting up and eating breakfast today. No significant bleeding at the site. Pulses present on the left foot utilizing Doppler. Dr. Barrera at bedside and I discussed the case with him. Hemoglobin did trend down to 9.9 from a baseline of 14. Creatinine actually improved a bit. He is good to elisabet zurita out of the ICU. Subjective Mr. Arnold says that he only has some lower abd/groin pain this AM. Was up, sitting at the side of the bed. Denies dizziness, headache, blurry vision, sore throat, cough, runny nose, chest pain, SOB, palpitations, diarrhea and constipation, numbness or tingling in hands or feet or swelling. Review of Systems Review of Systems: All systems reviewed & are unremarkable except as noted in HPI & below Physical Exam Physical Exam: General: Alert, oriented. No acute distress, sitting at bedside in chair. Skin: No noted rashes or bruises. Left inguinal surgical incision bandaged with no visible bleeding. Psych: Appropriate mood and affect Neuro: No gross deficits. Moves extremities. HEENT: NC/AT Chest: Nontender to palpation. CV: RRR, Normal s1, s2. Left posterior tib and DP pulses audible with doppler, though faint. Resp: Breath sounds clear bilaterally, no increased effort of breathing. Abdomen: Soft, mildly tender in upper and lower quadrants, nondistended. No guarding. Extremities: No edema in lower extremities bilaterally. MSK: able to move extremities Results & Data Vital Signs (Past 12 Hours) Vital Signs Temp Pulse Resp BP Pulse Ox 02/08/19 02:00 87 18 114/75 96 02/08/19 01:00 94 H 21 115/76 95 02/08/19 00:00 36.5 C 91 H 16 105/66 97 02/07/19 23:00 93 H 18 103/73 95 02/07/19 22:00 92 H 18 105/74 100 02/07/19 21:00 97 H 17 106/68 94 Laboratory Results Laboratory Results - last 24 hr 02/07/19 02/07/19 02/07/19 09:56 09:56 10:07 WBC RBC Hgb POC Hgb Hct POC Hct MCV MCH MCHC RDW Std Deviation RDW Coeff of Armida Plt Count MPV Immature Gran % (Auto) Neut % (Auto) Lymph % (Auto) Burt % (Auto) Eos % (Auto) Baso % (Auto) Immature Gran # (Auto) Neut # (Auto) Lymph # (Auto) Burt # (Auto) Eos # (Auto) Baso # (Auto) POC Sodium Sodium 138 POC Potassium Potassium 4.0 POC Chloride Chloride 103 Carbon Dioxide 28 POC Total CO2 Anion Gap 7.0 POC Anion Gap POC BUN BUN 15 Creatinine 1.44 H POC Creatinine Est Cr Clr Drug Dosing 57.9 Est GFR ( Amer) 57.8 Est GFR (Non-Af Amer) 49.9 BUN/Creatinine Ratio 10.5 Glucose 109 H POC Glucose 96 POC Glucose (other) Calcium 8.9 POC Ioniz Calcium Eri Nasal Screen MRSA (PCR) Hepatitis C Ab Screen Blood Type O Positive Antibody Screen NEGATIVE Crossmatch See Detail 02/07/19 02/07/19 02/07/19 14:10 16:35 18:15 WBC RBC Hgb POC Hgb 12.2 L Hct POC Hct 36 L MCV MCH MCHC RDW Std Deviation RDW Coeff of Armida Plt Count MPV Immature Gran % (Auto) Neut % (Auto) Lymph % (Auto) Burt % (Auto) Eos % (Auto) Baso % (Auto) Immature Gran # (Auto) Neut # (Auto) Lymph # (Auto) Burt # (Auto) Eos # (Auto) Baso # (Auto) POC Sodium 138 Sodium POC Potassium 4.3 Potassium POC Chloride 104 Chloride Carbon Dioxide POC Total CO2 25 Anion Gap POC Anion Gap 14.0 L POC BUN 13 BUN Creatinine POC Creatinine 1.2 Est Cr Clr Drug Dosing Est GFR ( Amer) Est GFR (Non-Af Amer) BUN/Creatinine Ratio Glucose POC Glucose 145 H POC Glucose (other) 132 H Calcium POC Ioniz Calcium Eri 1.15 Nasal Screen MRSA (PCR) Negative Hepatitis C Ab Screen Blood Type Antibody Screen Crossmatch 02/07/19 02/07/19 02/07/19 18:22 18:25 18:25 WBC 9.65 RBC 3.61 L Hgb 10.6 L POC Hgb Hct 32.4 L POC Hct MCV 89.8 MCH 29.4 MCHC 32.7 RDW Std Deviation 48.7 H RDW Coeff of Armida 14.7 H Plt Count 201 MPV 10.3 Immature Gran % (Auto) 0.2 Neut % (Auto) 85.2 Lymph % (Auto) 9.7 Burt % (Auto) 4.5 Eos % (Auto) 0.1 Baso % (Auto) 0.3 Immature Gran # (Auto) 0.02 Neut # (Auto) 8.22 H Lymph # (Auto) 0.94 L Burt # (Auto) 0.43 Eos # (Auto) 0.01 Baso # (Auto) 0.03 POC Sodium Sodium 139 POC Potassium Potassium 4.9 D POC Chloride Chloride 110 H Carbon Dioxide 26 POC Total CO2 Anion Gap 3.0 POC Anion Gap POC BUN BUN 13 Creatinine 1.14 D POC Creatinine Est Cr Clr Drug Dosing 72.0 Est GFR ( Amer) 76.7 Est GFR (Non-Af Amer) 66.2 BUN/Creatinine Ratio 11.8 Glucose 174 H POC Glucose 151 H POC Glucose (other) Calcium 7.4 L D POC Ioniz Calcium Eri Nasal Screen MRSA (PCR) Hepatitis C Ab Screen Blood Type Antibody Screen Crossmatch 02/07/19 02/07/19 02/08/19 21:15 23:15 04:14 WBC RBC Hgb 10.3 L POC Hgb Hct 30.6 L POC Hct MCV MCH MCHC RDW Std Deviation RDW Coeff of Armida Plt Count MPV Immature Gran % (Auto) Neut % (Auto) Lymph % (Auto) Burt % (Auto) Eos % (Auto) Baso % (Auto) Immature Gran # (Auto) Neut # (Auto) Lymph # (Auto) Burt # (Auto) Eos # (Auto) Baso # (Auto) POC Sodium Sodium POC Potassium Potassium POC Chloride Chloride Carbon Dioxide POC Total CO2 Anion Gap POC Anion Gap POC BUN BUN Creatinine POC Creatinine Est Cr Clr Drug Dosing Est GFR ( Amer) Est GFR (Non-Af Amer) BUN/Creatinine Ratio Glucose POC Glucose 167 H POC Glucose (other) Calcium POC Ioniz Calcium Eri Nasal Screen MRSA (PCR) Hepatitis C Ab Screen Neg Blood Type Antibody Screen Crossmatch 02/08/19 02/08/19 02/08/19 04:14 04:14 07:29 WBC 8.23 RBC 3.32 L Hgb 9.9 L POC Hgb Hct 29.7 L POC Hct MCV 89.5 MCH 29.8 MCHC 33.3 RDW Std Deviation 49.2 H RDW Coeff of Armida 15.0 H Plt Count 210 MPV 9.8 Immature Gran % (Auto) 0.2 Neut % (Auto) 77.6 Lymph % (Auto) 14.2 Burt % (Auto) 7.7 Eos % (Auto) 0.1 Baso % (Auto) 0.2 Immature Gran # (Auto) 0.02 Neut # (Auto) 6.38 Lymph # (Auto) 1.17 L Burt # (Auto) 0.63 H Eos # (Auto) 0.01 Baso # (Auto) 0.02 POC Sodium Sodium 137 POC Potassium Potassium 4.3 POC Chloride Chloride 106 Carbon Dioxide 26 POC Total CO2 Anion Gap 5.0 POC Anion Gap POC BUN BUN 12 Creatinine 1.13 POC Creatinine Est Cr Clr Drug Dosing 72.7 Est GFR ( Amer) 77.5 Est GFR (Non-Af Amer) 66.9 BUN/Creatinine Ratio 10.7 Glucose 129 H POC Glucose 135 H POC Glucose (other) Calcium 7.1 L POC Ioniz Calcium Eri Nasal Screen MRSA (PCR) Hepatitis C Ab Screen Blood Type Antibody Screen Crossmatch Medications Administered Home Medications nitroglycerin 0.4 mg sublingual tablet 0.4 mg SL Q5M #14 tab 09/23/18 [Rx Confirmed 02/07/19] acetaminophen [Tylenol Extra Strength] 1,000 mg PO Q6H PRN 01/06/19 [History Confirmed 02/07/19] allopurinol 100 mg PO UD PRN 01/06/19 [History Confirmed 02/07/19] amlodipine 5 mg PO QAM 01/06/19 [History Confirmed 02/07/19] aspirin [Adult Low Dose Aspirin] 81 mg PO QAM 01/06/19 [History Confirmed 02/07/19] atenolol-chlorthalidone 1 tab PO QAM 01/06/19 [History Confirmed 02/07/19] atorvastatin 80 mg PO QAM 01/06/19 [History Confirmed 02/07/19] colchicine 0.6 mg PO UD PRN 01/06/19 [History Confirmed 02/07/19] furosemide 20 mg PO QPM 01/06/19 [History Confirmed 02/07/19] lisinopril 40 mg PO QAM 01/06/19 [History Confirmed 02/07/19] metformin 500 mg PO BID 01/06/19 [History Confirmed 02/07/19] nystatin 1 appln TOP TID #60 gm 01/14/19 [Rx Confirmed 02/07/19] Active Medications Acetaminophen (Tylenol) 1,000 mg PO Q6H PRN PRN Reason: Pain Stop: 03/09/19 17:55 Allopurinol (Zyloprim) 100 mg PO UD PRN PRN Reason: Pain Stop: 03/09/19 17:55 Amlodipine Besylate (Norvasc) 5 mg PO QAM ZOEY Stop: 03/10/19 08:59 Last Admin: 02/08/19 09:16 Dose: Not Given Documented by: Aspirin (Ecotrin Ectab) 81 mg PO QAM ZOEY Stop: 03/10/19 08:59 Last Admin: 02/08/19 09:11 Dose: 81 mg Documented by: Atenolol (Tenormin) 50 mg PO DAILY ZOEY Stop: 03/10/19 08:59 Last Admin: 02/08/19 09:15 Dose: 50 mg Documented by: Atorvastatin Calcium (Lipitor) 80 mg PO QAM ZOEY Stop: 03/10/19 08:59 Last Admin: 02/08/19 09:12 Dose: 80 mg Documented by: Chlorthalidone (Hygroton) 25 mg PO DAILY ZOEY Stop: 03/10/19 08:59 Last Admin: 02/08/19 09:16 Dose: Not Given Documented by: Colchicine (Colcrys) 0.6 mg PO UD PRN PRN Reason: Pain Stop: 03/09/19 17:55 Dextrose (Dextrose 50%) 25 - 50 ml IV UD PRN; Protocol PRN Reason: Hypoglycemia Protocol Stop: 03/09/19 18:29 Enoxaparin Sodium (Lovenox) 40 mg SQ Q12H ZOEY Stop: 03/10/19 07:59 Last Admin: 02/08/19 09:11 Dose: 40 mg Documented by: Furosemide (Lasix) 20 mg PO QPM ZOEY Stop: 03/09/19 20:59 Last Admin: 02/07/19 21:17 Dose: 20 mg Documented by: Glucagon (Glucagen) 1 mg IM UD PRN; Protocol PRN Reason: Hypoglycemia Protocol Stop: 03/09/19 18:29 Glucose (Glucose 40%) 15 - 30 gm PO UD PRN; Protocol PRN Reason: Hypoglycemia Protocol Stop: 03/09/19 18:29 Glucose (Dex4 Glucose) 4 - 8 tabs PO UD PRN; Protocol PRN Reason: Hypoglycemia Protocol Stop: 03/09/19 18:29 Sodium Chloride (Nss) 250 mls @ 15 mls/hr IV .[id number] PRN PRN Reason: For Transfusion Stop: 03/09/19 13:53 Sodium Chloride (Nss 1000ml) 1,000 mls @ 125 mls/hr IV .Q8H ZOEY Stop: 03/09/19 17:55 Last Infusion: 02/08/19 07:20 Dose: Infused Documented by: Insulin Aspart (Novolog Flexpen) 0 units SC ACHS ZOEY Stop: 03/09/19 18:29 Last Admin: 02/08/19 09:10 Dose: 2 units Documented by: Lisinopril (Zestril) 40 mg PO QAM ZOEY Stop: 03/10/19 08:59 Last Admin: 02/08/19 09:16 Dose: Not Given Documented by: Miscellaneous (Carbohydrates For Hypoglycemia) 15 - 30 gm PO UD PRN PRN Reason: Hypoglycemia Treatment Stop: 03/09/19 18:29 Miscellaneous Information (Consult Glycemic Management Pharmacy) 1 ea N/A UD PRN PRN Reason: Consult Stop: 03/09/19 18:24 Morphine Sulfate (Morphine Sulfate) 1 - 4 mg IV Q2H PRN PRN Reason: Severe Pain Stop: 02/21/19 17:55 Last Admin: 02/08/19 06:37 Dose: 2 mg Documented by: Nitroglycerin (Nitrostat) 0.4 mg SL Q5M PRN PRN Reason: CP Stop: 03/09/19 19:04 Ondansetron HCl (Zofran) 4 mg IV Q6H PRN PRN Reason: Nausea And Vomiting Stop: 03/09/19 17:55 Oxycodone/Acetaminophen (Percocet 5mg/325mg) 1 - 2 tab PO Q4H PRN PRN Reason: Moderate Pain Stop: 02/21/19 17:55 PG Care Time/CCT Total # of Minutes Spent Total Time Spent with Patient: Total time spent is greater than 50% in coordination of care (as documented) at patient's floor/unit and/or counseling patient: Resident Activity Tracking Resident Involvement: Resident Care Provided Care Provided: Adult Hospital Medicine
[2019-02-08] MEDS ORDERED: NON-FORMULARY MEDICATION (Atenolol-Chlorthalidone 1 TAB) PO SCH (09:00)
[2019-02-08] MEDS: INSULIN ASPART 100 UNITS/ML 3 ML PEN SC SCH ×4 (09:10→21:28)
[2019-02-08] MEDS: ENOXAPARIN INJ 40 MG/0.4 ML SYR SQ SCH ×2 (09:11→21:00)
[2019-02-08] MEDS: ASPIRIN 81 MG ECTAB PO SCH (09:11)
[2019-02-08] MEDS: ATORVASTATIN 40 MG TAB PO SCH (09:12)
[2019-02-08] MEDS: ATENOLOL 50 MG TABLET PO SCH (09:15)
[2019-02-08] MEDS: AMLODIPINE BESYLATE 5 MG TAB PO SCH (09:16)
[2019-02-08] MEDS: CHLORTHALIDONE 25 MG TAB PO SCH (09:16)
[2019-02-08] MEDS: LISINOPRIL 40 MG TAB PO SCH (09:16)
--- NOTE | 2019-02-08 09:34 | Surgery Progress Note ---
Date of Service February 08, 2019 Assessment & Plan (1) Occlusion of common femoral artery: Patient doing well. Will increase activity and transfer to floor. Subjective Patient complains of groin discomfort. Says he can feel his feet now. No complaints of foot pain Physical Exam Constitutional: WD/WN, vitals as above Respiratory: no respiratory distress Gastrointestinal (Abdomen): Percussion/Palpation: abdomen soft Skin: + wound (Dressing dry and clean. No significant hematoma appreciated) Psychiatric: Orientation: alert and oriented x 3 Results & Data Vital Signs (Past 12 Hours) Vital Signs Temp Pulse Resp BP Pulse Ox 02/08/19 02:00 87 18 114/75 96 02/08/19 01:00 94 H 21 115/76 95 02/08/19 00:00 36.5 C 91 H 16 105/66 97 02/07/19 23:00 93 H 18 103/73 95 02/07/19 22:00 92 H 18 105/74 100
--- NOTE | 2019-02-08 13:40 | Pharmacy Report ---
Glycemic Control Consultation - Date of Service February 08, 2019 - Scope Scope: Glycemic Pharmacist consulted by Dr Barrera on 02/07 for glycemic control and to write orders per [facility] inpatient glycemic control protocol - Objective Weight: 107.2 kg Accuchecks BSG (last 24hrs): 02/07/19 02/07/19 02/07/19 14:10 16:35 18:22 Glucose POC Glucose 145 H 151 H POC Glucose (other) 132 H 02/07/19 02/07/19 02/08/19 18:25 21:15 04:14 Glucose 174 H 129 H POC Glucose 167 H POC Glucose (other) 02/08/19 02/08/19 07:29 12:10 Glucose POC Glucose 135 H 118 H POC Glucose (other) Laboratory Data (last 24hrs): 02/07/19 02/08/19 18:25 04:14 Potassium 4.9 D 4.3 Carbon Dioxide 26 26 Anion Gap 3.0 5.0 Creatinine 1.14 D 1.13 Est Cr Clr Drug Dosing 72.0 72.7 - Recent Pertinent Medications Outpatient Anti-diabetic Regimen: * Metformin 500 mg BID * A1c = 7.3% on 09/06/18 The patient is currently receiving: * Basal insulin: NPH 15 units x 1 yesterday * Correctional Insulin: Novolog Correction per scale ACHS Goal Range: Low 120 mg/dL - High 160 mg/dL Correction Factor: 25 mg/dL/unit * Prandial insulin: Per carb ratio of 1 unit per 8 grams CHO consumed Risk Factors for Insulin Resistance: * Steroids: Decadron 4 mg IV given intraop yesterday * Recent Surgery: POD 1 s/p endarterectomy * Diet: T2DM - Assessment & Plan Assessment & Plan: ASSESSMENT: * 68 y/o male admitted s/p endarterectomy. He has a history of well controlled T2DM, managed with solely metformin as an outpatient. * Pt is maintained on oral antidiabetic agents as an outpatient * Oral agents are not recommended for inpatient use d/t drug interactions, changing PO intake, and difficulty titrating for acute hyper/hypoglycemia. ADA recommends re-initiating outpatient oral agents 1-2 days prior to discharge if/when appropriate if they were held on admission. * Will hold oral agents for admission and utilize SQ basal bolus insulin regimen which is the recommended regimen for inpatient glycemic control. * Will initiate weight based insulin dosing for insulin yoko patient and titrate based on BSG trends. PLAN FOR INPATIENT GLYCEMIC CONTROL: * Holding outpatient oral diabetes medications - metformin will be resumed on 02/09 PM (48 hrs after contrast) * Basal insulin * No further basal insulin since patient will not receive further steroids * Bolus insulin * NovoLog per scale ACHS or Q6hrs while NPO * Goal Range: Low 120 mg/dL - High 160 mg/dL * Correction Factor: 25 mg/dL/unit * Nutritional / Prandial insulin per carb ratio of 1 unit per 8 grams CHO consumed * A1c ordered for 02/09 since last one available is > 90 days ago * Please note that the plan above was derived based on current level of insulin resistance and hospital stress. These recommendations are appropriate for inpatient admission only. Plan of care upon discharge will need to be reassessed to avoid potential outpatient hypo/hyperglycemia. Thank you.
[2019-02-08] MEDS: OXYCODONE/ACETAMINOPHEN 5mg/325mg TAB PO PRN ×2 (14:10→23:46)
[2019-02-08] MEDS: FUROSEMIDE 20 MG TAB PO SCH (21:06)
[2019-02-09 05:16] LABS: Basophils # (auto) 0.04 K/uL (0-0.2); Basophils % (auto) 0.4 %; Eosinophils # (auto) 0.14 K/uL (0-0.5); Eosinophils % (auto) 1.4 %; Hematocrit (blood only) 29.1 % (42-52); Hemoglobin 9.4 g/dL (14.0-18.0); Immature Granulocytes # (auto) 0.02 K/uL (0.00-0.02); Immature Granulocytes % (auto) 0.2 %; Lymphocytes # (auto) 1.94 K/uL (1.2-3.4); Lymphocytes % (auto) 20.1 %; Mean Corpuscular Hemoglobin 29.5 pg (25-34); Mean Corpuscular Hgb Conc 32.3 g/dL (32-36); Mean Corpuscular Volume 91.2 fL (80-100); Mean Platelet Volume 9.8 fL (7.4-10.4); Monocytes # (auto) 1.09 K/uL (0.11-0.59); Monocytes % (auto) 11.3 %; Neutrophils # (auto) 6.43 K/uL (1.4-6.5); Neutrophils % (auto) 66.6 %; Platelet Count 178 K/uL (130-400); RDW Coefficient of Variation 14.7 % (11.5-14.5); RDW Standard Deviation 49.7 fL (36.4-46.3); Red Blood Count 3.19 M/uL (4.7-6.1); White Blood Count 9.66 K/uL (4.8-10.8)
[2019-02-09 05:56] LABS: BUN Creatinine Ratio 11.9 (10-20); Calcium 7.5 mg/dl (8.5-10.1); Creatinine Clr Calc Pharmacy 37.4 ml/min; Est GFR (African American) 34.6; Est GFR (Non-African American) 29.9; Potassium 4.4 mmol/L (3.5-5.1)
[2019-02-09] MEDS: OXYCODONE/ACETAMINOPHEN 5mg/325mg TAB PO PRN ×3 (06:39→23:14)
[2019-02-09] MEDS ORDERED: FUROSEMIDE 20 MG TAB PO STA (07:41)
[2019-02-09] MEDS ORDERED: SODIUM CHLORIDE 0.9% 1,000 ML IV SCH (07:45)
[2019-02-09] MEDS: ENOXAPARIN INJ 40 MG/0.4 ML SYR SQ SCH ×2 (08:13→20:57)
[2019-02-09] MEDS: SODIUM CHLORIDE 0.9% 1,000 ML IV SCH ×3 (09:07→19:08)
[2019-02-09] MEDS: ATORVASTATIN 40 MG TAB PO SCH (09:08)
[2019-02-09] MEDS: ASPIRIN 81 MG ECTAB PO SCH (09:08)
[2019-02-09] MEDS: INSULIN ASPART 100 UNITS/ML 3 ML PEN SC SCH ×4 (09:10→20:49)
[2019-02-09] MEDS: ATENOLOL 50 MG TABLET PO SCH (09:11)
[2019-02-09] MEDS: LISINOPRIL 40 MG TAB PO SCH (09:11)
[2019-02-09] MEDS: CHLORTHALIDONE 25 MG TAB PO SCH (09:11)
[2019-02-09] MEDS: AMLODIPINE BESYLATE 5 MG TAB PO SCH (09:11)
[2019-02-09] MEDS ORDERED: FUROSEMIDE 40 MG/4 ML VIAL IV STA (09:36)
--- NOTE | 2019-02-09 09:42 | Surgery Progress Note ---
Date of Service February 09, 2019 Assessment & Plan (1) Occlusion of common femoral artery: Patient still requiring oxygen today. He does have a few crackles. He was slightly hypotensive during the night. He was bolused with thousand cc of saline. This raises pressure to the mid 90s. We will continue a maintenance IV being that he is not taking p.o. fluids that would help yet. Due to crackles in his lung and the edema in his lower extremities we will give him low-dose Lasix being that he is on chronic diuretic therapy at home. The foot itself is markedly improved. He has good Doppler signals of the posterior tibial and good capillary refill. He claims the foot feels much farzad r. Subjective Patient patient has no complaints. He says his left foot feels much better. He does have some mild left groin pain when he is up out of bed. He denies any shortness of breath. Physical Exam Respiratory: normal respiratory effort; no respiratory distress Auscultation: + crackles Cardiovascular: Rate/Rhythm: regular rate and regular rhythm Vessels: posterior tibial pulses present (Left posterior tibial has an easily dopplerable pulse.) and dorsalis pedis pulses present (There is a palpable dorsalis pedis on the left high on the foot.) Extremities: + edema (He does have mild bilateral lower extremity edema present on exam today.) Skin: + incision (Incision the left groin is dry and clean. No hematomas noted. The right groin puncture sites also dry and clean without any hematoma.) Psychiatric: Orientation: alert and oriented x 3 Results & Data Vital Signs (Past 12 Hours) Vital Signs Temp Pulse Pulse Resp BP BP Pulse Ox 02/09/19 07:34 37.0 C 81 16 91/58 L 93 02/09/19 07:25 82 18 77/48 L 02/08/19 23:13 37.1 C 85 18 98/66 L 92
--- NOTE | 2019-02-09 10:24 | XRay Report ---
XR chest 2V PA/lateral CLINICAL HISTORY: bilateral lung crackles dyspnea COMPARISON STUDY: 01/06/2019 FINDINGS: Chronic focal atelectatic change left base. Lungs otherwise appear clear. Diaphragms are sm ooth. IMPRESSION: Chronic focal atelectasis left base. Otherwise negative study. The above report was generated using voice recognition software. It may contain grammatical, syntax or spelling errors. Electronically signed by: Clemente Feliz M.D. 02/09/2019 10:23 AM
--- NOTE | 2019-02-09 10:36 | Pharmacy Report ---
Pharmacy Glycemic Short Note 2 - Date of Service February 09, 2019 - Glycemic Short BSG Results (Last 24 hours): 02/08/19 02/08/19 02/08/19 12:10 17:06 20:49 Glucose POC Glucose 118 H 119 H 122 H 02/09/19 02/09/19 04:44 07:59 Glucose 111 H POC Glucose 119 H OUTPATIENT ANTIDIABETIC REGIMEN: * Metformin 500 mg BID * A1c = 7.3% on 09/06/18 The patient is currently receiving: * Correctional Insulin: Novolog Correction per scale ACHS Goal Range: Low 120 mg/dL - High 160 mg/dL Correction Factor: 25 mg/dL/unit * Prandial insulin: Per carb ratio of 1 unit per 8 grams CHO consumed Risk Factors for Insulin Resistance: * Recent Surgery: POD 2 s/p endarterectomy * Diet: T2DM - Assessment & Plan ASSESSMENT: 02/09 * Mr. Arnold's BSGs have been stable on current regimen of bolus insulin only * SCr has increased (1.1 -> 2.2) * Will plan to loosen CR slightly and place ordered metformin on hold in the setting of reduced renal function 02/08 * 68 y/o male admitted s/p endarterectomy. He has a history of well controlled T2DM, managed with solely metformin as an outpatient. * Pt is maintained on oral antidiabetic agents as an outpatient * Oral agents are not recommended for inpatient use d/t drug interactions, changing PO intake, and difficulty titrating for acute hyper/hypoglycemia. ADA recommends re-initiating outpatient oral agents 1-2 days prior to discharge if/when appropriate if they were held on admission. * Will hold oral agents for admission and utilize SQ basal bolus insulin regimen which is the recommended regimen for inpatient glycemic control. * Will initiate weight based insulin dosing for insulin yoko patient and titrate based on BSG trends. PLAN FOR INPATIENT GLYCEMIC CONTROL: * Hold metformin in the setting of increased SCr * Bolus insulin - loosen CR slightly * NovoLog per scale ACHS or Q6hrs while NPO * Goal Range: Low 120 mg/dL - High 160 mg/dL * Correction Factor: 25 mg/dL/unit * Nutritional / Prandial insulin per carb ratio of 1 unit per 10 grams CHO consumed * A1c pending
[2019-02-09] MEDS: FUROSEMIDE 20 MG TAB PO SCH (20:56)
[2019-02-09] MEDS ORDERED: METFORMIN HCL 500 MG TAB PO SCH (21:00)
[2019-02-10] MEDS: SODIUM CHLORIDE 0.9% 1,000 ML IV SCH (05:14)
[2019-02-10 06:37] LABS: Estimated Average Glucose 134 mg/dl; Hemoglobin A1C 6.3 % (4.5-5.6)
[2019-02-10] MEDS: OXYCODONE/ACETAMINOPHEN 5mg/325mg TAB PO PRN ×2 (07:37→16:11)
--- NOTE | 2019-02-10 08:06 | Anesthesiology Progress Note ---
Date of Service February 10, 2019 Anesthesia Post Procedure Vital Signs Vital Signs: Temp Pulse Pulse Resp BP BP Pulse Ox 02/10/19 07:10 37.1 C 93 H 16 111/74 93 02/10/19 02:41 37 C 02/09/19 22:55 37.7 C H 91 H 18 96/61 L 93 02/09/19 19:12 89 95/59 L 92 02/09/19 15:22 37.2 C 85 18 90/59 L 94 02/09/19 13:20 85 16 83/50 L 91 02/09/19 10:50 96/50 L 02/09/19 10:20 84 16 80/53 L 93 02/09/19 09:30 86 18 86/54 L Pain Intensity Left Leg: Pain Intensity: 10 Left Groin: Pain Intensity: 8 Notes Mental Status: alert / awake / arousable and participated in evaluation Nausea / Vomiting: adequately controlled Pain: adequately controlled Airway Patency, RR, SpO2: stable & adequate BP & HR: stable & adequate Hydration State: stable & adequate
--- NOTE | 2019-02-10 08:32 | Pharmacy Report ---
Pharmacy Glycemic Short Note 2 - Date of Service February 10, 2019 - Glycemic Short BSG Results (Last 24 hours): 02/09/19 02/09/19 02/09/19 12:10 17:20 20:41 POC Glucose 108 H 132 H 129 H 02/10/19 08:04 POC Glucose 117 H OUTPATIENT ANTIDIABETIC REGIMEN: * Metformin 500 mg BID * A1c = 6.3% (02/09/19) Risk Factors for Insulin Resistance: * Recent Surgery: POD 3 s/p endarterectomy * Diet: T2DM - Assessment & Plan ASSESSMENT: 02/10 * BSGs have been stable on current regimen of bolus insulin only * SCr has increased (1.1 -> 2.2) - no new SCr ordered for today (will reassess tomorrow) * Continue to hold metformin in the setting of reduced renal function * Patient received 6 units of insulin yesterday with BSGs ranging 108-132 mg/dL 02/08 * 68 y/o male admitted s/p endarterectomy. He has a history of well controlled T2DM, managed with solely metformin as an outpatient. * Pt is maintained on oral antidiabetic agents as an outpatient * Oral agents are not recommended for inpatient use d/t drug interactions, changing PO intake, and difficulty titrating for acute hyper/hypoglycemia. ADA recommends re-initiating outpatient oral agents 1-2 days prior to discharge if/when appropriate if they were held on admission. * Will hold oral agents for admission and utilize SQ basal bolus insulin regimen which is the recommended regimen for inpatient glycemic control. * Will initiate weight based insulin dosing for insulin yoko patient and titrate based on BSG trends. PLAN FOR INPATIENT GLYCEMIC CONTROL: * Hold metformin in the setting of increased SCr * Bolus insulin - continue current parameters * NovoLog per scale ACHS or Q6hrs while NPO * Goal Range: Low 120 mg/dL - High 160 mg/dL * Correction Factor: 25 mg/dL/unit * Nutritional / Prandial insulin per carb ratio of 1 unit per 10 grams CHO consumed Discharge Plan: * Pending resolution of BROCK - patient can likely be discharged on current outpatient regimen of metformin 500 mg PO BIDM * A1c of 6.3% demonstrates good glycemic control
[2019-02-10] MEDS: ASPIRIN 81 MG ECTAB PO SCH (09:08)
[2019-02-10] MEDS: ATORVASTATIN 40 MG TAB PO SCH (09:10)
[2019-02-10] MEDS: ENOXAPARIN INJ 40 MG/0.4 ML SYR SQ SCH (09:11)
[2019-02-10] MEDS: LISINOPRIL 40 MG TAB PO SCH (09:12)
[2019-02-10] MEDS: AMLODIPINE BESYLATE 5 MG TAB PO SCH (09:12)
[2019-02-10] MEDS: CHLORTHALIDONE 25 MG TAB PO SCH (09:12)
[2019-02-10] MEDS: ATENOLOL 50 MG TABLET PO SCH (09:12)
[2019-02-10] MEDS: INSULIN ASPART 100 UNITS/ML 3 ML PEN SC SCH ×4 (09:13→21:22)
[2019-02-10 10:53] LABS: Hematocrit (blood only) 26.9 % (42-52); Hemoglobin 8.9 g/dL (14.0-18.0)
[2019-02-10 11:19] LABS: BUN Creatinine Ratio 15.3 (10-20); Calcium 7.6 mg/dl (8.5-10.1); Creatinine Clr Calc Pharmacy 50.4 ml/min; Est GFR (Non-African American) 41.4; Potassium 4.3 mmol/L (3.5-5.1)
--- NOTE | 2019-02-10 11:19 | Surgery Progress Note ---
Date of Service February 10, 2019 Assessment & Plan (1) Occlusion of common femoral artery: Pt still requiring Oxygen today, but has been titrated down from 4LPM to 2LPM and saturations remain acceptable at 93%. Pt does have some fluid balance and has received 3500ml of fluids since yesterday. Hypotension improved, will stop fluids. LLE remains significantly edematous. Will order LLE DVT US to be done today. Pt Cr yesterday was 2.2, new labs ordered for today, not resulted yet. Pt states feeling well. Continue to monitor. Subjective 68 yo m POD #3 after L iliac art stent and femoral to profunda bovine bypass graft, seen in f/u today. Pt admits pain in L groin and leg, worse with ambulation. Also admits severe edema of LLE. Denies any SOB, chest pain, N/V, or rest pain of LLE. Review of Systems Review of Systems: All systems reviewed & are unremarkable except as noted in HPI & below Physical Exam Constitutional: WD/WN, vitals as above + morbidly obese Respiratory: normal respiratory effort Auscultation: + crackles Cardiovascular: Rate/Rhythm: regular rate and regular rhythm Vessels: posterior tibial pulses present (doppler) and dorsalis pedis pulses present (doppler) Extremities: normal capillary refill, + pedal edema and + edema (LLE with +4 tight edema) Gastrointestinal (Abdomen): Inspection/Auscultation: abdomen normal to inspection and normal bowel sounds Percussion/Palpation: abdomen nontender Musculoskeletal: Extremities: strength 5/5 throughout Skin: + incision (L groin incision C/D/I with dave. ) Neurologic: moves all extremities; no focal motor deficits Psychiatric: A+Ox3, euthymic affect Results & Data Vital Signs (Past 12 Hours) Vital Signs Temp Pulse Resp BP BP Pulse Ox 02/10/19 09:15 90/55 L 02/10/19 07:10 37.1 C 93 H 16 111/74 93 02/10/19 02:41 37 C
--- NOTE | 2019-02-10 16:11 | Ultrasound Report ---
US venous doppler LE LT CLINICAL HISTORY: LLE edema, possible DVT COMPARISON STUDY: No previous studies for comparison. FINDINGS: Thrombus formation within the distal left popliteal vein. There is also involvement of the posterior tibial vein and peroneal vein. IMPRESSION: Acute deep venous thrombosis from the left popliteal vein extending to components of the left lower leg. The above report was generated using voice recognition software. It may contain grammatical, syntax or spelling errors. Electronically signed by: Clemente Feliz M.D. 02/10/2019 4:10 PM
[2019-02-10] MEDS ORDERED: RIVAROXABAN 15 MG TAB PO SCH (21:00)
[2019-02-10] MEDS: FUROSEMIDE 20 MG TAB PO SCH (21:22)
[2019-02-10] MEDS: RIVAROXABAN 20 MG TAB PO SCH (21:40)
[2019-02-11 05:47] LABS: Hemoglobin 8.3 g/dL (14.0-18.0)
[2019-02-11] MEDS: OXYCODONE/ACETAMINOPHEN 5mg/325mg TAB PO PRN ×2 (06:04→17:58)
[2019-02-11 06:18] LABS: Calcium 7.6 mg/dl (8.5-10.1); Creatinine Clr Calc Pharmacy 67.2 ml/min; Est GFR (Non-African American) 58.6; Potassium 4.2 mmol/L (3.5-5.1)
[2019-02-11] MEDS: AMLODIPINE BESYLATE 5 MG TAB PO SCH (09:01)
[2019-02-11] MEDS: ATENOLOL 50 MG TABLET PO SCH (09:02)
[2019-02-11] MEDS: CHLORTHALIDONE 25 MG TAB PO SCH (09:02)
[2019-02-11] MEDS: LISINOPRIL 40 MG TAB PO SCH (09:02)
[2019-02-11] MEDS: ASPIRIN 81 MG ECTAB PO SCH (09:02)
[2019-02-11] MEDS: ATORVASTATIN 40 MG TAB PO SCH (09:02)
[2019-02-11] MEDS: INSULIN ASPART 100 UNITS/ML 3 ML PEN SC SCH ×4 (09:05→21:20)
--- NOTE | 2019-02-11 10:57 | Pharmacy Report ---
Pharmacy Glycemic Short Note 2 - Date of Service February 11, 2019 - Glycemic Short BSG Results (Last 24 hours): 02/10/19 02/10/19 02/10/19 10:39 11:57 17:08 Glucose 137 H POC Glucose 104 H 121 H 02/10/19 02/11/19 20:33 05:17 Glucose 106 H POC Glucose 175 H OUTPATIENT ANTIDIABETIC REGIMEN: * Metformin 500 mg BID * A1c = 6.3% (02/09/19) Risk Factors for Insulin Resistance: * Recent Surgery: POD 3 s/p endarterectomy * Diet: T2DM - Assessment & Plan ASSESSMENT: 02/11 * Patient is now POD #4 s/p stent placement of left common iliac artery * BSGs have been stable on current regimen of bolus insulin only * SCr trending down over past couple of days (2.2 -> 1.68 -> 1.28) * Continue to hold metformin in the setting of variable renal function (consi allyson restarting metformin tomorrow, or on discharge if renal function stable) * Patient received 13 units of insulin yesterday with BSGs ranging 104-175 mg/dL 02/08 * 68 y/o male admitted s/p endarterectomy. He has a history of well controlled T2DM, managed with solely metformin as an outpatient. * Pt is maintained on oral antidiabetic agents as an outpatient * Oral agents are not recommended for inpatient use d/t drug interactions, changing PO intake, and difficulty titrating for acute hyper/hypoglycemia. ADA recommends re-initiating outpatient oral agents 1-2 days prior to discharge if/when appropriate if they were held on admission. * Will hold oral agents for admission and utilize SQ basal bolus insulin regimen which is the recommended regimen for inpatient glycemic control. * Will initiate weight based insulin dosing for insulin yoko patient and titrate based on BSG trends. PLAN FOR INPATIENT GLYCEMIC CONTROL: * Continue to hold metformin while inpatient or until renal function is stable * Bolus insulin - continue current parameters * NovoLog per scale ACHS or Q6hrs while NPO * Goal Range: Low 120 mg/dL - High 160 mg/dL * Correction Factor: 25 mg/dL/unit * Nutritional / Prandial insulin per carb ratio of 1 unit per 10 grams CHO consumed Discharge Plan: * Patient can likely be discharged on current outpatient regimen of metformin 500 mg PO BIDM * A1c of 6.3% demonstrates good glycemic control
--- NOTE | 2019-02-11 11:04 | Surgery Progress Note ---
Date of Service February 11, 2019 Assessment & Plan (1) Occlusion of common femoral artery: Pt still requiring Oxygen today at 2LPM. Pt states feeling well, somewhat tired. Hgb 8.3 today. Recheck tomororw. Continue to monitor. (2) DVT of popliteal vein: Started on Eliquis, will need treatment for 3-6 months. Elevate LLE to alleviate edema. Subjective 68 yo m POD #4 after L iliac art stent and femoral to profunda bovine bypass graft, seen in f/u today. Pt admits pain in L groin and leg, worse with movement. Also admits severe edema of LLE. Denies any SOB, chest pain, N/V, or rest pain of LLE. Venous US positive for LLE pop DVT, started on Eliquis last evening. Physical Exam Constitutional: WD/WN, vitals as above + morbidly obese Respiratory: normal respiratory effort Auscultation: + crackles Cardiovascular: Rate/Rhythm: regular rate and regular rhythm Vessels: posterior tibial pulses present (doppler) and dorsalis pedis pulses present (doppler) Extremities: normal capillary refill, + pedal edema and + edema (LLE with +4 tight edema) Gastrointestinal (Abdomen): Inspection/Auscultation: abdomen normal to inspection and normal bowel sounds Percussion/Palpation: abdomen nontender Musculoskeletal: Extremities: strength 5/5 throughout Skin: + incision (L groin incision C/D/I with dave. ) Neurologic: moves all extremities; no focal motor deficits Psychiatric: A+Ox3, euthymic affect Results & Data Vital Signs (Past 12 Hours) Vital Signs Temp Pulse Resp BP BP Pulse Ox 02/11/19 07:20 36.9 C 82 16 111/68 92 02/10/19 23:05 37.2 C 90 20 102/66 93
[2019-02-11] MEDS: RIVAROXABAN 20 MG TAB PO SCH (21:23)
[2019-02-11] MEDS: FUROSEMIDE 20 MG TAB PO SCH ×2 (21:42→22:06)
[2019-02-12 06:54] LABS: Hematocrit (blood only) 24.6 % (42-52)
[2019-02-12 07:12] LABS: BUN Creatinine Ratio 12.8 (10-20); Calcium 8.2 mg/dl (8.5-10.1); Creatinine Clr Calc Pharmacy 60.2 ml/min; Est GFR (African American) 59.3; Est GFR (Non-African American) 51.2; Potassium 4.2 mmol/L (3.5-5.1)
[2019-02-12] MEDS ORDERED: SODIUM CHLORIDE 0.9% 250 ML IV PRN (08:01)
[2019-02-12] MEDS: ATORVASTATIN 40 MG TAB PO SCH (08:43)
[2019-02-12] MEDS: AMLODIPINE BESYLATE 5 MG TAB PO SCH (08:43)
[2019-02-12] MEDS: LISINOPRIL 40 MG TAB PO SCH (08:44)
[2019-02-12] MEDS: CHLORTHALIDONE 25 MG TAB PO SCH (08:44)
[2019-02-12] MEDS: ASPIRIN 81 MG ECTAB PO SCH (08:44)
[2019-02-12] MEDS: ATENOLOL 50 MG TABLET PO SCH (08:44)
[2019-02-12] MEDS: INSULIN ASPART 100 UNITS/ML 3 ML PEN SC SCH ×4 (09:39→21:25)
--- NOTE | 2019-02-12 11:09 | Surgery Progress Note ---
Date of Service February 12, 2019 Assessment & Plan (1) Occlusion of common femoral artery: Pt still requiring Oxygen today at 2LPM. Pt states feeling well, somewhat tired. Hgb 8.0 today, will administer 2 U PRBC d/t anemia and hypotension. Continue to monitor. (2) DVT of popliteal vein: Started on Eliquis, will need treatment for 3-6 months. Elevate LLE to alleviate edema. Subjective 68 yo m POD #5 after L iliac art stent and femoral to profunda bovine bypass graft, seen in f/u today. Pt admits pain in L groin and leg, worse with movement. Also admits severe edema of LLE. Denies any SOB, chest pain, N/V, or rest pain of LLE. Venous US positive for LLE pop DVT, started on Eliquis 2 days ago for DVT. Pt hgb noted to be 8.0 today, with hypotension 89/60. Review of Systems Review of Systems: All systems reviewed & are unremarkable except as noted in HPI & below Physical Exam Constitutional: WD/WN, vitals as above + morbidly obese Respiratory: normal respiratory effort Auscultation: no crackles Cardiovascular: Rate/Rhythm: regular rate and regular rhythm Vessels: posterior tibial pulses present (doppler) and dorsalis pedis pulses present (doppler) Extremities: normal capillary refill, + pedal edema and + edema (LLE with +4 tight edema) Gastrointestinal (Abdomen): Inspection/Auscultation: abdomen normal to inspection and normal bowel sounds Percussion/Palpation: abdomen nontender Musculoskeletal: Extremities: strength 5/5 throughout Skin: + incision (L groin incision C/D/I with dave. ) Neurologic: moves all extremities; no focal motor deficits Psychiatric: A+Ox3, euthymic affect Results & Data Vital Signs (Past 12 Hours) Vital Signs Temp Pulse Pulse Resp BP BP Pulse Ox 02/12/19 10:30 36.6 C 70 16 83/59 L 94 02/12/19 10:15 37.3 C 72 16 86/53 L 95 02/12/19 10:00 37.2 C 61 16 112/71 94 02/12/19 08:42 36.6 C 02/12/19 07:15 37.6 C H 82 16 110/75 93
[2019-02-12] MEDS: OXYCODONE/ACETAMINOPHEN 5mg/325mg TAB PO PRN (16:04)
[2019-02-12] MEDS: RIVAROXABAN 20 MG TAB PO SCH (21:25)
[2019-02-12] MEDS: FUROSEMIDE 20 MG TAB PO SCH (21:25)
[2019-02-13 06:32] LABS: Hematocrit (blood only) 31.3 % (42-52); Hemoglobin 10.6 g/dL (14.0-18.0)
[2019-02-13 06:57] LABS: BUN Creatinine Ratio 11.4 (10-20); Calcium 8.7 mg/dl (8.5-10.1); Creatinine Clr Calc Pharmacy 64.2 ml/min; Est GFR (African American) 64.8; Est GFR (Non-African American) 55.9; Potassium 4.2 mmol/L (3.5-5.1)
[2019-02-13] MEDS: ASPIRIN 81 MG ECTAB PO SCH (08:34)
[2019-02-13] MEDS: AMLODIPINE BESYLATE 5 MG TAB PO SCH (08:34)
[2019-02-13] MEDS: ATORVASTATIN 40 MG TAB PO SCH (08:34)
[2019-02-13] MEDS: CHLORTHALIDONE 25 MG TAB PO SCH (08:34)
[2019-02-13] MEDS: ATENOLOL 50 MG TABLET PO SCH (08:35)
[2019-02-13] MEDS: LISINOPRIL 40 MG TAB PO SCH (08:35)
--- NOTE | 2019-02-13 09:00 | Pharmacy Report ---
Pharmacy Glycemic Sign Off Nt - Date of Service February 13, 2019 - Assessment & Plan ASSESSMENT: * Pharmacy was consulted by Dr Barrera on 02/07/19 for glycemic control and to write orders per [facility] inpatient glycemic control protocol. * Major changes made by pharmacy to antidiabetic regimen include: * NPH given x 1 post-operatively to cover for dexamethasone-induced hyperglycemia * Novolog orders changed to CF of 25 and CR of 10 * Patient has been receiving/requiring approximately 6-8 units of insulin per day for adequate glycemic control * BSGs ranging 101-163 mg/dl * Patient has not required any adjustments over the past 4 days * Do not anticipate further changes in patient status that would quickly deteriorate glycemic control (i.e. patient to be NPO for upcoming procedure, steroids tapering, starting tube feedings, etc). * Please see recommendations for outpatient antidiabetic regimen below. PLAN FOR INPATIENT GLYCEMIC CONTROL: No changes needed to current regimen. * No basal needed for this patient * Continue NovoLog per scale ACHS/Q6hrs while NPO * Goal range = 120-160 mg/dl * CF = 25 mg/dl/unit * CR = 1 unit for ever 10 g CHO consumed * A1c added to discharge instructions to be communicated to PCP. * Pharmacy is signing off of glycemic consult and will no longer be making adjustments to inpatient regimen. Please feel free to re-consult if needed. Thank you. DISCHARGE RECOMMENDATIONS: * A1c 6.3 % on 02/09/19 * Continuation of home metformin 500 mg PO BIDM is reasonable for this patient given A1c of 6.3% and eGFR of 56 mL/min
[2019-02-13] MEDS: INSULIN ASPART 100 UNITS/ML 3 ML PEN SC SCH ×4 (09:12→21:29)
--- NOTE | 2019-02-13 12:35 | Surgery Progress Note ---
Date of Service February 13, 2019 Assessment & Plan (1) Occlusion of common femoral artery: Patient is doing better today. He feels much better after his 2 units of blood. We will continue his physical therapy. He is able to get around independently then he may be ready for discharge to home. If he cannot get around independently then he may need to consider rehab placement. (2) DVT of popliteal vein: This point he is on oral anticoagulation for his DVT. Subjective Patient is feeling good today. Claims his left lower extremity is not getting any trouble. He is going to ambulate this afternoon in the [place]. Physical Exam Constitutional: WD/WN, vitals as above Respiratory: normal respiratory effort; no respiratory distress Auscultation: lungs clear to auscultation bilaterally Cardiovascular: Rate/Rhythm: regular rate and regular rhythm Vessels: posterior tibial pulses present (Left posterior tibial has an easily dopplerable pulse.) and dorsalis pedis pulses present (There is a palpable dorsalis pedis on the left high on the foot.) Extremities: + edema (Edema lower extremities much less today per) Gastrointestinal (Abdomen): Percussion/Palpation: abdomen soft Skin: + incision (Incision the left groin is dry and clean. No hematomas noted. The right groin puncture sites also dry and clean without any hematoma.) Psychiatric: Orientation: alert and oriented x 3 Results & Data Vital Signs (Past 12 Hours) Vital Signs Temp Pulse Resp BP Pulse Ox Pulse Ox 02/13/19 10:22 37 C 77 16 102/67 94 02/13/19 10:00 94 02/13/19 07:10 37.3 C 78 16 97/71 L 94
[2019-02-13] MEDS: OXYCODONE/ACETAMINOPHEN 5mg/325mg TAB PO PRN (19:35)
[2019-02-13] MEDS: RIVAROXABAN 20 MG TAB PO SCH (21:07)
[2019-02-13] MEDS: FUROSEMIDE 20 MG TAB PO SCH (21:08)
[2019-02-14] MEDS: ATENOLOL 50 MG TABLET PO SCH (08:39)
[2019-02-14] MEDS: AMLODIPINE BESYLATE 5 MG TAB PO SCH (08:39)
[2019-02-14] MEDS: CHLORTHALIDONE 25 MG TAB PO SCH (08:39)
[2019-02-14] MEDS: LISINOPRIL 40 MG TAB PO SCH (08:39)
[2019-02-14] MEDS: ATORVASTATIN 40 MG TAB PO SCH (08:39)
[2019-02-14] MEDS: ASPIRIN 81 MG ECTAB PO SCH (08:39)
[2019-02-14] MEDS: OXYCODONE/ACETAMINOPHEN 5mg/325mg TAB PO PRN (08:43)
[2019-02-14] MEDS: INSULIN ASPART 100 UNITS/ML 3 ML PEN SC SCH ×2 (09:13→13:34)
--- NOTE | 2019-02-14 10:25 | Surgery Progress Note ---
Date of Service February 14, 2019 Assessment & Plan (1) Occlusion of common femoral artery: Patient is doing well today, oxygenating at 93% on RA. Ambulating well with walker. Discussed wtih Dr Barrera. Will d/c home today, where he lives with his daughter. (2) DVT of popliteal vein: This point he is on oral anticoagulation for his DVT, to continue for 3-6 months. Pt aware. Subjective 68 yo m s/p LLE fem-profunda bovine graft. Patient is feeling good today. Denies pain in LLE aside from groin incision. Ambulating with walker without any trouble. Denies any other new complaints. Review of Systems Review of Systems: All systems reviewed & are unremarkable except as noted in HPI & below Physical Exam Constitutional: WD/WN, vitals as above + morbidly obese Respiratory: normal respiratory effort Auscultation: no crackles Cardiovascular: Rate/Rhythm: regular rate and regular rhythm Vessels: posterior tibial pulses present (doppler) and dorsalis pedis pulses present (doppler) Extremities: normal capillary refill, + pedal edema and + edema (LLE with +4 edema, less tight than previous) Gastrointestinal (Abdomen): Inspection/Auscultation: abdomen normal to inspection and normal bowel sounds Percussion/Palpation: abdomen nontender Musculoskeletal: Extremities: strength 5/5 throughout Skin: + incision (L groin incision C/D/I with dave. ) Neurologic: moves all extremities; no focal motor deficits Psychiatric: A+Ox3, euthymic affect Results & Data Vital Signs (Past 12 Hours) Vital Signs Temp Pulse Pulse Resp BP BP Pulse Ox 02/14/19 10:05 02/14/19 09:36 93 02/14/19 08:00 36.4 C L 80 16 136/88 93 02/13/19 23:15 37.0 C 78 16 107/72 92 Pulse Ox 02/14/19 10:05 93 02/14/19 09:36 02/14/19 08:00 02/13/19 23:15
[2019-02-14 15:12] VITALS: BP 128/75; PULSE 74; TEMP 98.2; O2SAT 99
--- NOTE | 2019-02-17 08:40 | Discharge Summary ---
Date of Service February 17, 2019 Admission HPI Per Admitting Provider Chief Complaint: Severe bilateral claudication Primary Care Provider: Cristiane Duarte PA-C Mr. Anthony Arnold is a very pleasant 68-year-old gentleman with a history of significant peripheral arterial disease who previously underwent what sounds like stenting to the bilateral external iliac arteries in 2002, who now presents with severe, lifestyle limiting, short distance claudication affecting the bilateral lower extremities. He indicates that as far back as he can remember, he has had some pain in his calves, however, for the last several years, it has only been with very long distances, and the pain has not been quite as severe. However, over the last few months, he has noted that he can only walk about 50 yards before he has to stop due to pain experienced in the bilateral calves. The pain is cramping in nature. It is worse in the left than on the right. He also describes pain in the bilateral feet. The pain in the feet is present "all the time." He says that he rarely has pain in his thighs. He denies pain in his hips or buttocks. He indicates that when he lays down at night. He does have some pain in his calves and his feet. This is there "all the time." He does not indicate that it improves with positional changes. He denies any history of wounds to the bilateral lower extremities. He does have some neuropathy which he feels is due to the diabetes in the bilateral lower extremities. He denies any weakness. He did have the prior stents placed, which sounds like in the bilateral external iliac arteries back in 2002. Other than this, he indicates that he has not had any other vascular intervention. Allergies Admission Exam Per Admitting Provider Physical Exam: He is a well-appearing, well-nourished, elderly male who is in no acute distress. He is accompanied by his daughter to today's visit. He is breathing comfortably on room air. Lungs are clear His heart has a regular rate and rythm. His abdomen is obese, however, soft, nontender, nondistended. There are no palpable pulsatile abdominal masses. I am able to weakly palpate a femoral pulse on the right. I am unable to palpate a femoral pulse on the left. His bilateral feet are slightly cool to the touch. I am not able to palpate any pedal pulses bilaterally. There are no wounds to the bilateral lower extremities. He does have the aforementioned neuropathy, which affects his bilateral feet and he indicates that this is at baseline. He is able to sense light touch to the bilateral feet. His motor is intact to the bilateral lower extremities Principal Diagnosis 1. s/p L iliac art stent and femoral to profunda bovine BPG 2. 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 Anemia d/t operative blood loss 4. Acute LLE popliteal vein DVT Discharge Exam Constitutional WD/WN, vitals as above + morbidly obese Respiratory normal respiratory effort Auscultation: no crackles Cardiovascular Rate/Rhythm: regular rate and regular rhythm Vessels: posterior tibial pulses present (doppler) and dorsalis pedis pulses present (doppler) Extremities: normal capillary refill, + pedal edema and + edema (LLE with +4 edema, less tight than previous) Gastrointestinal (Abdomen) Inspection/Auscultation: abdomen normal to inspection and normal bowel sounds Percussion/Palpation: abdomen nontender Musculoskeletal Extremities: strength 5/5 throughout Skin + incision (L groin incision C/D/I with dave. ) Neurologic moves all extremities; no focal motor deficits Psychiatric A+Ox3, euthymic affect Discharge Data Allergies Allergy/AdvReac Type Severity Reaction Status Date / Time No Known Drug Allergies Allergy Verified 02/07/19 10:00 Consultations 02/07/19 16:15 Consult Facility Maintenance Supervisor Routine 02/08/19 08:00 Consult Case Management - Discharge Planning Routine Procedures Performed Operation Date: 02/07/19 11:35 Actual Procedures p Left common iliac artery stent placement, left external iliac stent placement, left external iliac to left profunda femoral artery bovine bypass,(Left) - Uriah Barrera MD Ordered Studies 02/07/19 FL hip LT 1V Stat 02/07/19 07:28 EV angio LE LT Routine 02/10/19 11:29 US venous doppler LE LT Urgent Hospital Course (1) Occlusion of common femoral artery: POD #7: Patient is doing well today, oxygenating at 93% on RA. Ambulating well with walker. Discussed wtih Dr Barrera. Will d/c home today, where he lives with his daughter. (2) DVT of popliteal vein: This point he is on oral anticoagulation for his DVT, to continue for 3-6 months. Pt aware. Total Time Total Time Spent Total Time Spent (In Minutes): 20 minutes Total Time Includes: Examination of the Patient, Discharge Planning and Medication Reconciliation Discharge Plan Discharge Items Patient Disposition: Home - Self-Care Reason For Visit: Left Common Femoral Artery Occlusion, Left Superfi Discharge Diagnosis: 1. s/p L iliac stent and L fem art endarterectomy with bovine femoral to profunda bypass graft 2. 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 LLE popliteal vein DVT Condition on Discharge: Good Activity: Per Instructions section Non-emergency contact: Primary Care Provider and Surgeon Call non-emergency contact if: you have any medication questions, your pain is concerning for you, your temperature is above 101, your wound has increased redness and your wound has increased drainage Follow-up/Referrals: Cristiane Duarte PA-C [Primary Care Provider] - (Follow up in 1-2 weeks.) Uriah Barrera MD [Physician] - (Follow up in office in [address] Barrera or Kim Maldonado PA-C, for staple removal. Call [phone] for appt. ) Diet: Carb Consistent or DM2 and Heart Healthy Addtl Attending Provider Instructions: 1. Pt may shower, no bathing. Gently cleanse L groin wound with soap and rinse, then pat dry gently. 2. PLace gauze between L groin folds to separate skin to keep wound dry. 3. Pt may ambulate as tolerated with walker. 4. Elevate LLE when sitting to decrease edema. 5. Make a follow up appt with your PCP within 2 weeks. Make sure she is aware that you have been diagnosed with a blood clot in your left leg and are on anticoagulation. 6. Make a follow up appt with Dr Barrera's office in 2 weeks for staple removal. 7. Call Dr Barrera's office at [phone] if any questions regarding your left leg. Pending Studies at Discharge: No Stand-Alone Forms: My Birthday Slam, Smoking Cessation Medications and DC Order Prescriptions: New oxycodone-acetaminophen [Percocet] 5-325 mg Tablet 1 - 2 tab PO Q4H PRN (Reason: Pain) Qty: 30 RF: 0 Xarelto 20 mg Tablet 20 mg PO DAILY@2100 Qty: 30 RF: 3 Continued nitroglycerin 0.4 mg tablet, sublingual 0.4 mg SL Q5M Qty: 14 RF: 2 atenolol-chlorthalidone 50-25 mg Tablet 1 tab PO QAM RF: 0 metformin 500 mg tablet 500 mg PO BID RF: 0 atorvastatin 80 mg tablet 80 mg PO QAM RF: 0 amlodipine 5 mg tablet 5 mg PO QAM RF: 0 aspirin [Adult Low Dose Aspirin] 81 mg tablet,delayed release (DR/EC) 81 mg PO QAM RF: 0 lisinopril 40 mg tablet 40 mg PO QAM RF: 0 allopurinol 100 mg Tablet 100 mg PO UD PRN (Reason: Pain) RF: 0 furosemide 20 mg tablet 20 mg PO QPM RF: 0 colchicine 0.6 mg tablet 0.6 mg PO UD PRN (Reason: Pain) RF: 0 acetaminophen [Tylenol Extra Strength] 500 mg Tablet 1,000 mg PO Q6H PRN (Reason: Pain) RF: 0 nystatin 100,000 unit/gram powder 1 appln TOP TID Qty: 60 RF: 0 Discharge Orders: Discharge Order (Routine); Ordered 02/14/19 Ordered By: Kim Granda/Other Patient Handouts: Hyperglycemia, Hypoglycemia, Diabetes Type 2 Coping, Diabetes Meal Planning Admission Data Admit Date/Time: 02/07/19 10:42 Attending Provider: Uriah Barrera Admit Provider: Uriah Barrera Primary Care Provider: Cristiane Duarte Other Providers: Joo Levine ; Dayne Bhatti ; Pedro Yeager ; Brady Roland ; Luis Esquivel ; Gene Marte ; Bere Han ; Chino Ambrose ; Linda Rinaldi ; Tanya Cowart ; Belkys Gramajo ; Koby Hannah ; Can Manning ; Pro Pacheco. Other Interventions: Discharge Summary Assessment (RN) Last Done: 02/14/19 14:36 DC Date/Time DO NOT enter until pt leaves facility: 02/14/19 17:22
== END 2019-02-14 17:22 | disposition home or self-care (01) | DRG 271 ==
LOC: ASU 09:42 → 1E 10:42 → 3N 02-08 09:29